=== PATIENT | male | born 1990 | race Caucasian/White ===

== ENCOUNTER 2018-03-08 13:16 | Emergency (ER) | payer MEDICARE, MEDICAID, SELFPAY ==
[2018-03-08 13:27] VITALS: BP 128/78; PULSE 98; RESP 18; TEMP 37.1; O2SAT 99
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
[2018-03-08] MEDS: Ibuprofen 600 MG TAB PO (14:15)
== END 2018-03-08 14:55 | disposition home or self-care (01) ==
PROVIDERS: Emergency Provider Emergency Medicine; PCP Specialist/Technologist Athletic Trainer
DX: S20.222A Contusion of left back wall of thorax, initial encounter (principal); W50.1XXA Accidental kick by another person, initial encounter
CPT/HCPCS: 99284; 99282

== ENCOUNTER 2018-12-11 10:26 | Emergency (ER) | payer MEDICARE, MEDICAID, SELFPAY ==
[2018-12-11 10:35] VITALS: BP 136/83; PULSE 86; RESP 18; TEMP 36.8; O2SAT 97
[2018-12-11 11:09] LABS: Bilirubin Negative (Negative); Blood Negative (Negative); Clarity Clear (Clear); Glucose Negative (Negative); Ketones Negative (Negative); Leukocyte Esterase Small (Negative); Nitrite Negative (Negative); Specific Gravity 1.025 (1.005-1.025); Urobilinogen 0.2 EU/dL (Up TO 0.2)
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
[2018-12-11 11:31] LABS: *AMPHETAMINES SCREEN URINE Negative (Negative); *BARBITURATES SCREEN URINE Negative (Negative); *BENZODIAZEPINES SCREEN URINE Negative (Negative); Cannabinoids THC POSITIVE (Negative); Cocaine Screen,Urine Negative (Negative); METHADONE URINE SCREEN Negative (Negative); OPIATES URINE SCREEN Negative (Negative)
[2018-12-11 11:32] LABS: Tricyclic Antidepressants Negative (Negative)
[2018-12-11 11:37] LABS: Epithelial Cells Few HPF (Negative); RBC 0-2 (0-2); WBC 20-50 HPF (0-5)
[2018-12-11 11:38] LABS: Bacteria Few HPF (Negative); C & S Indicated? Yes; Casts Negative LPF (Negative); Crystals Negative HPF (Negative); Mucus Heavy (Negative)
[2018-12-11 11:50] LABS: Abs Immature Grans 0.01 k/cumm (0.0-0.09); Absolute Basophil Count 0.02 k/cumm (0.0-0.2); Absolute Eosinophil Count 0.02 k/cumm (0.0-0.7); Absolute Lymphocyte Count 1.57 k/cumm (1.2-3.4); Absolute Monocyte Count 0.74 k/cumm (0.11-0.7); Absolute Neutrophil Count 5.89 k/cumm (1.2-6.7); Basophils % 0.2; Eosinophils % 0.2; HGB 15.5 g/dL (13.5-17.5); Immature Grans % 0.1; Mean Corp. HGB Concentration 35.2 g/dL (32.0-36.0); Mean Corpuscular Hemoglobin 31.8 pg (27.0-33.0); Mean Corpuscular Volume 90.3 fL (80-95); Mean Platelet Volume 9.8 fL (8.0-11.0); Neutrophils % 71.5; Platelet Count 245 x1000/uL (130-400); RBC 4.87 m/cumm (4.50-6.00); RBC Distribution Width 12.9 % (11.8-14.1); White Blood Cell Count 8.25 k/cumm (4.4-10.8)
[2018-12-11 12:08] LABS: ALT 15 U/L (16-63); AST 13 U/L (15-37); Albumin 4.3 g/dL (3.4-5.0); Alkaline Phosphatase 86 U/L (46-116); Anion Gap 10.4 mmol/L (3-11); BUN 12 mg/dL (7-18); Bilirubin, Total 0.6 mg/dL (0.2-1.0); CO2 26.6 mmol/L (21.0-32.0); CREATININE 1.01 mg/dL (0.70-1.30); Calcium 9.3 mg/dL (8.5-10.1); Chloride 101 mmol/L (98-107); Glucose 108 mg/dL (70-100); Potassium 3.9 mmol/L (3.5-5.1); Sodium 138 mmol/L (136-145); Total Protein 7.8 g/dL (6.4-8.2)
--- NOTE | 2018-12-11 12:16 | PDOC.MHCN_ITS ---
Mental Health Crisis Note Presenting Issue How did you arrive at the ED and why did you come: Clt came in with his SO becacuse clt may be having a psychotic break. 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 The clt has been reported to be decompensating and stopped his anti-psychotic medication. Disposition BEHAVIOR: Clt appears calm at the present moment. EYE CONTACT: Eye contact was intermittent. MOOD: Pleasant for the moment. AFFECT: Somewhat flat APPETITE: Good SLEEP(trouble falling/staying asleep: some issues with sleep. Plan To get the clt reconnected to necessary mental health services and restart the clt's anti-psychotic medication.
[2018-12-11 12:40] VITALS: BP 142/83; PULSE 92; RESP 16; O2SAT 97
[2018-12-11 15:23] VITALS: BP 133/87; PULSE 96; TEMP 37.1; O2SAT 98
--- NOTE | 2018-12-18 09:28 | CMPROGNOTE_ITS ---
Care Management Progress Note Dr. Martell requested support with discharge planning for Mirza. Dr. Martell and this race and sports book writer called multiple pharmacies to inquire to invega in stock. Dr. Martell was able to coordinate through [facility] in [facility] for tomorrow, 12/12/18. Mirza's grandmother will pick up operator the medication at [facility] and bring Mirza to the Emergency Room for the injection. Mirza will require another dose in a week, and then will resume his monthly dosing at [facility] as he was doing previously. Gale reported he would work to have Mirza re-attached to [facility]. He reported the intake paperwork has already been completed and Mirza should be re- attached as soon as possible.
--- NOTE | 2018-12-18 09:28 | PDOC.ERCMPRO ---
Care Management Progress Note Dr. Martell requested support with discharge planning for Mirza. Dr. Martell and this justowriter operator called multiple pharmacies to inquire to invega in stock. Dr. Martell was able to coordinate through [facility] in [facility] for tomorrow, 12/12/18. Mirza's grandmother will metal pickling equipment operator the medication at [facility] and bring Mirza to the Emergency Room for the injection. Mirza will require another dose in a week, and then will resume his monthly dosing at [facility] as he was doing previously. Gale reported he would work to have Mirza re-attached to [facility]. He reported the intake paperwork has already been completed and Mirza should be re-attached as soon as possible.
== END 2018-12-11 16:45 | disposition home or self-care (01) ==
PROVIDERS: Emergency Provider Physician Assistant; PCP Specialist/Technologist Athletic Trainer
DX: F20.9 Schizophrenia, unspecified (principal)
CPT/HCPCS: 36415; 80053; 80307; 99283; 81003; 81015; 85025; 87086

== ENCOUNTER 2018-12-12 09:35 | Emergency (ER) | payer MEDICARE, MEDICAID, SELFPAY ==
[2018-12-12 09:38] VITALS: BP 125/88; PULSE 104; RESP 20; TEMP 36.9; O2SAT 96
--- NOTE | 2018-12-12 09:46 | W.ED.GENAD ---
Discharge Plan Disposition Patient Disposition: HOME Condition: Stable Discharge Details Chief Complaint: Recheck Clinical Impression: Medication administered Primary Care Provider: Blake Huggins ED Provider: Ivana Martell Home Meds and New Rx's Prescriptions: Continued Invega Sustenna 234 MG/1.5 ML syringe 234 mg IM DIRECTED RF: 0 ibuprofen 600 MG tablet 600 mg PO Q8H PRNQty: 15 RF: 0 Invega Sustenna 156 mg/mL syringe 156 mg IM ONCE Qty: 1 RF: 0 hydroxyzine HCl 10 MG tablet 50 mg PO TID RF: 0 paliperidone [Invega] 3 MG tablet extended release 24hr 3 mg PO DAILY RF: 0 atomoxetine [Strattera] 100 mg Capsule 100 mg PO DAILY RF: 0 Discharge Instructions Instructions: Paliperidone (Injection) Additional Instructions: Alternate Tylenol and Motrin as needed and directed for pain. You can apply ice to the affected area for 20 minutes at a time as needed. Follow-up with [facility] services and care management to ensure that you have a follow-up appointment in 6 to 7 days for the second injection of 156mg Invega and then follow-up with [facility] services for your once monthly injections of 234 mg Invega. Return to the emergency department if you develop any worsening or new concerning symptoms such as fever, pain, numbness or weakness. Discharge Data Discharge Date/Time-TO BE ENTERED AT DEPARTURE: 12/12/18 09:55 Discharge Physician: Ivana Martell Medical Decision Making 28-year-old male with a history of schizophrenia presents today for administration of his Invega injection. Patient was seen here yesterday for request of restarting his Invega injection but this was not available. Please refer to yesterday's note for further information. Fianc? states that patient did much better last night and no acute events. Patient presents with his fianc?e and grandmother. Grandmother picked up the Invega injection from the pharmacy. The injection was administered by the nurse which patient tolerated well without any complications. Plan is for patient to follow-up with [facility] human services for further injections of this medication. It was discussed with care management yesterday, that if patient is unable to obtain the second injection at 7 days with [facility], to return to the emergency department for evaluation at that time and likely administration of his needed dose. Medical Records Medical records reviewed: Yes I reviewed the patient's medical records. HPI General Mode of arrival: ambulatory. Date/Time Provider Initiated Documentation: 12/12/18 09:45. Limitations to Documentation: no limitations. Information obtained by: patient and family. HPI Narrative: Patient is a 28-year-old male with a history of schizophrenia who presents with his Invega injection dose for administration here in the ED today. Patient was seen here yesterday with request of restarting his Invega injection which he had previously been receiving at [facility] but had not received it the past few months. Please refer to my note from yesterday for further information. After discussion with care management and mental health, [facility] for mental health dropped off the prescription for Invega to the pharmacy yesterday with plans for patient's grandmother to merchandise pickup/receiving associate the dose this morning and then return to the ER today for administration of the injection. Fianc? states that patient did well overnight with no acute events. Related Data Home Medications Medication Instructions Recorded Confirmed Invega Sustenna 234 mg IM DIRECTED 10/14/14 03/08/18 hydroxyzine HCl 50 mg PO TID 02/22/16 03/08/18 paliperidone [Invega] 3 mg PO DAILY 02/22/16 03/08/18 ibuprofen 600 mg PO Q8H PRN #15 tablet 09/16/16 03/08/18 atomoxetine [Strattera] 100 mg PO DAILY 03/08/18 03/08/18 Invega Sustenna 156 mg IM ONCE #1 ml 12/11/18 Previous Rx's Medication Instructions Recorded ibuprofen 600 mg PO Q8H PRN #15 tablet 09/16/16 Invega Sustenna 156 mg IM ONCE #1 ml 12/11/18 Allergies Allergy/AdvReac Type Severity Reaction Status Date / Time No Known Allergies Allergy Unverified 03/08/18 13:30 General Stated Complaint: Recheck GABRIEL: 5 Review of Systems Review of Systems ROS Unobtainable: All systems reviewed & are unremarkable except as noted in HPI and below PFSH Social History Smoking/Tobacco Use Status: Current every day Alcohol Intake: never Drug use: Occasionally Substance use type: marijuana Do you feel safe in your relationship?: No Exam Const General: cooperative, healthy appearing and no acute distress HENMT Head: normal to inspection Mouth: oral mucosae normal Eyes General: appearance normal, both eyes and all related structures Neck Neck: normal visual inspection Resp Effort & Inspection: normal respiratory effort and able to speak in complete sentences Auscultation: clear to auscultation bilaterally Cardio Rate: regular rate Rhythm: regular rhythm Skin General skin exam: no rashes or lesions noted Neuro General: alert, awake and oriented x3 Motor: muscle tone normal throughout Extrem General: normal to inspection and full ROM Psych Appearance: grossly normal Mental Status: mental status grossly normal Speech and Movement: speech and movement normal Affect: normal affect Attitude: cooperative Course Vital Signs Vital signs: Vital Signs Temperature 98.4 F 12/12/18 09:38 Pulse 104 H 12/12/18 09:38 Respiratory Rate 20 12/12/18 09:38 Blood Pressure 125/88 12/12/18 09:38 Pulse Oximetry 96 12/12/18 09:38 Temperature 98.4 F 12/12/18 09:38 Temperature Source Skin 12/12/18 09:38 Pulse 104 H 12/12/18 09:38 Respiratory Rate 20 12/12/18 09:38 Respiratory Effort Non-Labored 12/12/18 09:41 Blood Pressure 125/88 12/12/18 09:38 Blood Pressure Position Sitting 12/12/18 09:38 Pulse Oximetry 96 12/12/18 09:38 Oxygen Delivery Method Room Air 12/12/18 09:38 Oxygen Flow Rate 0 12/12/18 09:38
--- NOTE | 2018-12-22 10:40 | CMPROGNOTE_ITS ---
- If Service Date Differs Date of service: 12/18/18 Time of Service: 13:00 Care Management Progress Note GIAN spoke with [facility], [facility] and reviewed plan for Mirza (Keyshawn) to receive the other part of his Invega Sustenna injection 156 mg. GIAN contacted [facility] and spoke with [facility]ER ROLLER RN who reports he is no longer receiving services through them. [facility] is attempting to restart services through [facility] and reestablishing [facility] for Keyshawn. GIAN contacted primary care office and Natty Borges to arrange for a one time order for the split dose. Keyshawn does have the 234 mg at the pharmacy for his next full dose. His primary care is willing to do the monthly injections and have scheduled an appointment for Keyshawn on 01/08/19. GIAN coordinated todays injection with primary care and future injections will be administered by them. GIAN reviewed the plan with LAURIE Seals at [facility] to confirm the plan and that she will follow up with patient and gram. GIAN spoke with the Grandmother and she will ensure that the patients follows up with primary care.
== END 2018-12-12 09:55 | disposition home or self-care (01) ==
PROVIDERS: Emergency Provider Physician Assistant; PCP Specialist/Technologist Athletic Trainer
DX: F20.9 Schizophrenia, unspecified (principal)
CPT/HCPCS: 96372; 99284

== ENCOUNTER 2019-01-01 07:49 | Emergency (ER) | payer MEDICARE, MEDICAID, SELFPAY ==
[2019-01-01 07:54] VITALS: BP 121/74; PULSE 94; RESP 18; TEMP 36.3; O2SAT 98
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
--- NOTE | 2019-01-01 09:00 | NUR.NOTE ---
Nursing Note: breakfast provided
[2019-01-01 09:37] LABS: Bilirubin Negative (Negative); Blood Negative (Negative); Clarity Clear (Clear); Glucose Negative (Negative); Ketones Negative (Negative); Leukocyte Esterase Negative (Negative); Nitrite Negative (Negative); Specific Gravity 1.015 (1.005-1.025); Urobilinogen 0.2 EU/dL (Up TO 0.2)
[2019-01-01 09:48] LABS: *AMPHETAMINES SCREEN URINE Negative (Negative); *BARBITURATES SCREEN URINE Negative (Negative); *BENZODIAZEPINES SCREEN URINE Negative (Negative); Cannabinoids THC POSITIVE (Negative); Cocaine Screen,Urine Negative (Negative); METHADONE URINE SCREEN Negative (Negative); OPIATES URINE SCREEN Negative (Negative)
[2019-01-01 09:50] LABS: Tricyclic Antidepressants Negative (Negative)
--- NOTE | 2019-01-01 10:05 | NUR.NOTE ---
patient medicated per provider order for anxiety , patient agreed to have to labs drawn Nursing Note:
--- NOTE | 2019-01-01 10:07 | NUR.NOTE ---
patients previous note was entered by Jose Shannon RN not Adamaris Gee RN Nursing Note:
[2019-01-01] MEDS: LORazepam 1 MG TAB PO (10:08)
[2019-01-01 10:11] LABS: Abs Immature Grans 0.02 k/cumm (0.0-0.09); Absolute Basophil Count 0.02 k/cumm (0.0-0.2); Absolute Eosinophil Count 0.01 k/cumm (0.0-0.7); Absolute Lymphocyte Count 1.63 k/cumm (1.2-3.4); Absolute Monocyte Count 0.32 k/cumm (0.11-0.7); Absolute Neutrophil Count 6.71 k/cumm (1.2-6.7); Basophils % 0.2; Eosinophils % 0.1; HCT 39.7 % (40.0-50.0); HGB 13.8 g/dL (13.5-17.5); Immature Grans % 0.2; Lymphocytes % 18.7; Mean Corp. HGB Concentration 34.8 g/dL (32.0-36.0); Mean Corpuscular Hemoglobin 31.8 pg (27.0-33.0); Mean Corpuscular Volume 91.5 fL (80-95); Mean Platelet Volume 9.3 fL (8.0-11.0); Monocytes % 3.7; Neutrophils % 77.1; Platelet Count 293 x1000/uL (130-400); RBC 4.34 m/cumm (4.50-6.00); RBC Distribution Width 12.6 % (11.8-14.1); White Blood Cell Count 8.71 k/cumm (4.4-10.8)
[2019-01-01 10:32] LABS: ALT 21 U/L (16-63); AST 9 U/L (15-37); Alkaline Phosphatase 75 U/L (46-116); Anion Gap 7.6 mmol/L (3-11); BUN 9 mg/dL (7-18); Bilirubin, Total 0.3 mg/dL (0.2-1.0); CO2 30.4 mmol/L (21.0-32.0); CREATININE 1.14 mg/dL (0.70-1.30); Calcium 9.5 mg/dL (8.5-10.1); Chloride 101 mmol/L (98-107); Glucose 133 mg/dL (70-100); Potassium 3.7 mmol/L (3.5-5.1); Sodium 139 mmol/L (136-145); TSH 1.56 uIU/mL (0.36-3.74); Total Protein 7.2 g/dL (6.4-8.2)
[2019-01-01 10:34] LABS: Salicylate 7.4 mg/dL (2.8-20.0)
[2019-01-01 10:35] LABS: Acetaminophen < 2 ug/mL (10-30); ETHANOL BLOOD < 3.0 mg/dL (<3)
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
--- NOTE | 2019-01-01 11:12 | NUR.NOTE ---
Nursing Note Pt's grandmother has called to request to be notified of where and when pt leaves [facility]. Her best phone number for contact is: [phone]. Primary nurse is aware.
[2019-01-01] MEDS: diphenhydrAMINE 25 MG CAP PO (11:17)
[2019-01-01] MEDS: LORazepam 1 MG TAB 2 MG PO (11:17)
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
--- NOTE | 2019-01-01 11:39 | NUR.NOTE ---
pt provided with lunch tray Nursing Note:
--- NOTE | 2019-01-01 12:18 | NUR.NOTE ---
late entry note: 1117: patient agreed to take medication for increased anxiety and agitation, lunch tray offered, report given to primary RN Nursing Note:
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
[2019-01-01] MEDS: Ibuprofen 600 MG TAB PO (17:18)
[2019-01-01] MEDS: hydrOXYzine HCL 25 MG TAB (17:18)
--- NOTE | 2019-01-01 18:35 | NUR.NOTE ---
18:35 Spoke with Cheryl in admissions at [facility] for a second time. They received the addendum from mental health and is in review.
--- NOTE | 2019-01-01 20:21 | NUR.NOTE ---
1900-shift report received from POPEYE Ferguson. pt is resting on bed with eyes closed, sitter bedside. per report, no b bed available for transport so pt will likely stay in ED for atleast tonight. sitter states pt ate small amount for supper. no distress noted. Nursing Note:
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
[2019-01-01 22:51] VITALS: BP 120/82; PULSE 74; RESP 18; TEMP 36.7; O2SAT 99
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
== END 2019-01-01 22:55 | disposition home or self-care (01) ==
PROVIDERS: Physician Assistant; Emergency Provider Physician Assistant; PCP Specialist/Technologist Athletic Trainer
DX: F20.9 Schizophrenia, unspecified (principal); F41.9 Anxiety disorder, unspecified
CPT/HCPCS: 36415; 80053; 80307; 96372; 99222; 99283; 99285; 80320; 80329; 81003; 84443; 85025; 99284

== ENCOUNTER 2019-01-06 13:14 | Emergency (ER) | payer MEDICARE, MEDICAID, SELFPAY ==
[2019-01-06 13:17] VITALS: BP 129/79; PULSE 84; RESP 20; TEMP 36.8; O2SAT 99
--- NOTE | 2019-01-06 13:54 | ED.GENADUL_ITS ---
Discharge Plan Disposition Patient Disposition: HOME Condition: Stable Discharge Details Chief Complaint: PsychEval Clinical Impression: Anxiety, Schizophrenia Primary Care Provider: Blake Huggins ED Provider: Kiko Pantoja Home Meds and New Rx's Prescriptions: New lorazepam [Ativan] 1 mg tablet 1 mg PO TID PRN (Reason: anxiety) Qty: 5 RF: 0 Continued Invega Sustenna 234 MG/1.5 ML syringe 234 mg IM DIRECTED RF: 0 ibuprofen 600 MG tablet 600 mg PO Q8H PRNQty: 15 RF: 0 Invega Sustenna 156 mg/mL syringe 156 mg IM ONCE Qty: 1 RF: 0 hydroxyzine HCl 10 MG tablet 50 mg PO TID RF: 0 paliperidone [Invega] 3 MG tablet extended release 24hr 3 mg PO DAILY RF: 0 atomoxetine [Strattera] 100 mg Capsule 100 mg PO DAILY RF: 0 Discharge Instructions Instructions: Anxiety (ED) Additional Instructions: Please follow-up with [facility] tomorrow as planned. Return if you feel you are a danger of hurting herself or others. May take the prescribed Ativan, if needed for anxiety or nerves. Continue your regular medications. Medical Decision Making 28-year-old male with history of schizophrenia presents with his girlfriend. He is been having intermittent episodes of feeling anxiety and agitation and states that he feels that he is going to snap. He states he does not want to harm himself or hurt other people. States he was referred by [facility] and questions the need to restart his anxiolytics which in the pa st included lorazepam. Medical screening examination performed. Patient medically stable for further evaluation. He is given Ativan 2 mg p.o. x1. Interviewed by mental health worker, with plan made for outpatient follow-up tomorrow and consideration of ongoing anxiolysis. We have agreed that I will prescribe Mirza a small number of Ativan to be used in the interim between tomorrow's appointment. He will return to the ER for any acute concern. HPI General Mode of arrival: ambulatory . Date/Time Provider Initiated Documentation: 01/06/19 13:20 . Limitations to Documentation: no limitations . Information obtained by: patient . History of Present Illness 28 year old M presents to the emergency department with the chief complaint of I feel as if I might snap and was referred to the ER by [place], described as moderate and similar to prior episodes, and is localized to the head. Patient started experiencing this day(s) and it has been intermittent. No relieving factors improve symptom(s), No exacerbating factors reported . Patient notes other (Denies thoughts of harming himself or others. Specifically no suicidal ideation. No cutting behavior.). Patient did receive the following treatments prior to arrival, none Related Data Home Medications Medication Instructions Recorded Confirmed Invega Sustenna 234 mg IM DIRECTED 10/14/14 01/06/19 hydroxyzine HCl 50 mg PO TID 02/22/16 01/06/19 paliperidone [Invega] 3 mg PO DAILY 02/22/16 01/06/19 ibuprofen 600 mg PO Q8H PRN #15 tablet 09/16/16 01/06/19 atomoxetine [Strattera] 100 mg PO DAILY 03/08/18 01/06/19 Invega Sustenna 156 mg IM ONCE #1 ml 12/11/18 01/06/19 lorazepam [Ativan] 1 mg PO TID PRN #5 tab 01/06/19 Previous Rx's Medication Instructions Recorded ibuprofen 600 mg PO Q8H PRN #15 tablet 09/16/16 Invega Sustenna 156 mg IM ONCE #1 ml 12/11/18 lorazepam [Ativan] 1 mg PO TID PRN #5 tab 01/06/19 Allergies Allergy/AdvReac Type Severity Reaction Status Date / Time No Known Allergies Allergy Unverified 01/06/19 13:23 General Stated Complaint: PsychEval GABRIEL: 2 Review of Systems Narrative: Taking his medications. Hears noncommand verbal hallucinations. Denies other injury. No suicidal ideation or homicidal ideation. 6 systems reviewed and otherwise negative. [facility] Medical History Schizophrenia (Chronic) Social History Smoking/Tobacco Use Status: Current every day Alcohol Intake: never Drug use: Occasionally Substance use type: marijuana Do you feel safe in your relationship?: No Exam Narrative Exam Narrative: GEN: awake, alert, oriented 3. Pleasant, well groomed, interactive. HEAD: Normocephalic, atraumatic ENT: Mucous membranes moist, oropharynx unremarkable, External ear exam unremarkable EYES: PERRL, EOMI NECK: Full ROM, no TAVO, no menigismus CHEST/RESP: Nontender, clear to auscultation bilateral, no wheeze/rhonchi/rales CARDIOVASCULAR: RRR, no murmur, rub papo. 2+ Rad pulse bilateral ABDOMEN: Soft, nontender, no mass. +Bowel sounds EXT: Full ROM, no edema, no rash Neuro: Grossly normal neurologic exam, conversant, interactive. Psych: Speech fluent, thoughts congruent, affect flat Course Vital Signs Vital signs: Vital Signs Temperature 36.8 C 01/06/19 13:17 Pulse 84 01/06/19 13:17 Respiratory Rate 20 01/06/19 13:17 Blood Pressure 129/79 01/06/19 13:17 Pulse Oximetry 99 01/06/19 13:17 Temperature 36.8 C 01/06/19 13:17 Temperature Source Temporal Artery Scan 01/06/19 13:17 Pulse 84 01/06/19 13:17 Respiratory Rate 20 01/06/19 13:17 Blood Pressure 129/79 01/06/19 13:17 Pulse Oximetry 99 01/06/19 13:17 Oxygen Delivery Method Room Air 01/06/19 13:17 Oxygen Flow Rate 0 01/06/19 13:17 Pain Level 0 01/06/19 13:17
[2019-01-06 14:01] LABS: *AMPHETAMINES SCREEN URINE Negative (Negative); *BARBITURATES SCREEN URINE Negative (Negative); *BENZODIAZEPINES SCREEN URINE Negative (Negative); Cannabinoids THC POSITIVE (Negative); Cocaine Screen,Urine Negative (Negative); METHADONE URINE SCREEN Negative (Negative); OPIATES URINE SCREEN Negative (Negative)
[2019-01-06 14:11] LABS: Tricyclic Antidepressants Negative (Negative)
[2019-01-06] MEDS: LORazepam 1 MG TAB 2 MG PO (14:21)
--- NOTE | 2019-01-06 14:56 | PDOC.MHCN ---
Mental Health Crisis Note Presenting Issue How did you arrive at the ED and why did you come: Clt came in because he having issues with his psychosis. Precipitating Factors Clt has a hx of psychotic symptoms and is dx'ed on the schizophrenic spectrum. The clt has a meeting with his new prescriber tomorrow. Clt will be getting his nighttime dose of Activan and tomorrow he will attend his meeting at 230p to see his prescriber. Clt denies any SI or HI. The voices according to the clt, aren't giving him any harmful commands. Disposition BEHAVIOR: The clt's behavior is largely cooperative but has issues with going off on tangents that have nothing to do with the conversation. EYE CONTACT: The clt's eye contact was intermittent. MOOD: The clt's mood was pleasant. AFFECT: He had a pleasant affect. APPETITE: Good SLEEP(trouble falling/staying asleep: Issues with sleep disturbance. Plan The clt will go home and take medications as prescribed. He will focus on getting a good sleep and attend his meeting with his new prescriber tomorrow at the [facility] office at 230p.
== END 2019-01-06 22:10 | disposition home or self-care (01) ==
PROVIDERS: Emergency Provider Emergency Medicine; PCP Specialist/Technologist Athletic Trainer
DX: F41.9 Anxiety disorder, unspecified (principal); F20.9 Schizophrenia, unspecified
CPT/HCPCS: 80307; 99284

== ENCOUNTER 2020-02-04 19:25 | Emergency (ER) | payer MEDICARE, MEDICAID, SELFPAY ==
[2020-02-04 19:35] VITALS: BP 123/80; PULSE 106; RESP 14; TEMP 36.7; O2SAT 97
--- NOTE | 2020-02-04 19:37 | ED.GENADUL_ITS ---
Discharge Plan Disposition Patient Disposition: HOME Condition: Stable Discharge Details Clinical Impression: Back strain Primary Care Provider: Blake Huggins ED Provider: Belgica Lanza Home Meds and New Rx's Prescriptions: No Action Invega Sustenna 234 MG/1.5 ML syringe 234 mg IM DIRECTED RF: 0 ibuprofen 600 MG tablet 600 mg PO Q8H PRNQty: 15 RF: 0 hydroxyzine HCl 10 MG tablet 50 mg PO TID RF: 0 paliperidone [Invega] 3 MG tablet extended release 24hr 3 mg PO DAILY RF: 0 atomoxetine [Strattera] 100 mg Capsule 100 mg PO DAILY RF: 0 clonidine HCl 0.1 mg tablet 1 mg PO BID RF: 0 gabapentin 600 mg tablet 600 mg PO QID RF: 0 bupropion HCl 100 mg tablet sustained-release 12 hr 100 mg PO QAM RF: 0 Discharge Instructions Instructions: Thoracic Back Strain (ED) Additional Instructions: take ibuprofen 600 mg 4 times daily with food if needed and or acetaminophen 650 mg 4 times daily if needed can use heat or ice for comfort no lifting or twisting or bending at the waist until symptoms resolved. Referrals: Blake Huggins [Primary Care Provider] - Medical Decision Making non traumatic back pain while lifting groceries. will give toradol 30 mg IM, acetaminophen 1000 mg po and lidocaine patch with improvement in pain. no xray indicated at this time. will discharge with conservative care HPI General Date/Time Provider Initiated Documentation: 02/04/20 19:26 . Information obtained by: patient . HPI Narrative: This is a 29-year-old male patient who was in his usual state of health until tonight when he went to go bring in groceries walking up the stairs and felt pain in his right mid back. He denies any trauma fall or similar history. no fever chills cough or shortness of breath. He did not take any pain medication prior to arrival Related Data Home Medications Medication Instructions Recorded Confirmed Invega Sustenna 234 mg IM DIRECTED 10/14/14 02/04/20 hydroxyzine HCl 50 mg PO TID 02/22/16 02/04/20 paliperidone [Invega] 3 mg PO DAILY 02/22/16 02/04/20 ibuprofen 600 mg PO Q8H PRN #15 tablet 09/16/16 02/04/20 atomoxetine [Strattera] 100 mg PO DAILY 03/08/18 02/04/20 bupropion HCl 100 mg PO QAM 02/04/20 02/04/20 clonidine HCl 1 mg PO BID 02/04/20 02/04/20 gabapentin 600 mg PO QID 02/04/20 02/04/20 Previous Rx's Medication Instructions Recorded ibuprofen 600 mg PO Q8H PRN #15 tablet 09/16/16 Allergies Allergy/AdvReac Type Severity Reaction Status Date / Time No Known Allergies Allergy Unverified 01/06/19 13:23 General GABRIEL: 2 Review of Systems Constitutional Constitutional: Denies fever(s) and Denies frequent falls Respiratory Respiratory: Denies cough Gastrointestinal Gastrointestinal: Denies abdominal pain and Denies nausea Musculoskeletal Musculoskeletal: Denies abnormal gait, Reports back pain and Denies numbness Integumentary/Breasts Skin/Breast: Denies lesions and Denies rash Neurologic Neurologic: Denies abnormal gait, Denies frequent falls and Denies numbness PFSH Medical History (Updated 02/04/20 @ 20:00 by Belgica Lanza NP) ADD (attention deficit disorder) Anxiety Schizophrenia Surgical History Fracture of lower leg Social History Smoking/Tobacco Use Status: Current every day Tobacco Type: cigarettes Smoking risk assessment performed?: Yes Alcohol Intake: never Drug use: Occasionally Substance use type: marijuana Do you feel safe at home: Yes Do you feel safe in your relationship?: Yes Exam Const General: cooperative, comfortable and no acute distress Nutritional Appearance: thin Orientation: alert, awake and oriented x3 [facility] Head: normal to inspection, normocephalic and atraumatic Resp Effort & Inspection: normal respiratory effort Auscultation: clear to auscultation bilaterally Cardio Rate: regular rate Rhythm: regular rhythm Back/Spine/Pelvis Back: no CVA tenderness, No erythema, No ecchymosis and back tenderness Thoracic/Lumbar Spine: No mass Skin Lesions: lesions noted Rashes: rash noted Neuro General: patient alert, patient awake, patient oriented x3 and no focal motor deficits Extrem General: normal to inspection, full ROM and no edema
[2020-02-04] MEDS: Acetaminophen 500 MG TAB 1000 MG PO (19:58)
[2020-02-04] MEDS: Ketorolac 30 MG/ML VIAL IVP (19:59)
[2020-02-04] MEDS: Lidocaine 5% Patch 1 PATCH TP (19:59)
== END 2020-02-04 20:20 | disposition home or self-care (01) ==
PROVIDERS: Emergency Provider Nurse Practitioner Acute Care; PCP Specialist/Technologist Athletic Trainer
DX: S29.012A Strain of muscle and tendon of back wall of thorax, initial encounter (principal); X58.XXXA Exposure to other specified factors, initial encounter
CPT/HCPCS: 96374; 99284; 99283; J1885

== ENCOUNTER 2021-09-12 18:57 | Outpatient (REF) | payer MEDICARE, MEDICAID, SELFPAY ==
[2021-09-12 21:34] LABS: Anion Gap 9.2 mmol/L (3-11); BUN 10 mg/dL (7-18); CO2 27.8 mmol/L (21.0-32.0); CREATININE 0.9 mg/dL (0.70-1.30); Calcium 9.4 mg/dL (8.5-10.1); Chloride 104 mmol/L (98-107); Glucose 109 mg/dL (74-106); Potassium 3.6 mmol/L (3.5-5.1); Sodium 141 mmol/L (136-145)
== END 2021-09-12 18:58 | disposition home or self-care (01) ==
LOC: LBN 18:57
PROVIDERS: PCP Specialist/Technologist Athletic Trainer; Visit Provider Physician Assistant Medical
DX: R10.31 Right lower quadrant pain (principal); R07.81 Pleurodynia
CPT/HCPCS: 80048

== ENCOUNTER → 2021-09-12 19:08 | Outpatient (CLI) | payer MEDICARE, MEDICAID, SELFPAY ==
--- NOTE | 2021-09-12 | DI.RAD_ITS ---
Exam(s) XR RIBS RT W PA LAT CHEST EXAM: XR RIBS RT W PA LAT CHEST CLINICAL HISTORY: Rib pain, right side TECHNIQUE: 2D digital imaging was performed.Six images were obtained. COMPARISON: No exams were available for comparison FINDINGS: MEDIASTINUM: Normal. HEART: Normal. PULMONARY VASCULATURE: Normal. LUNGS: Clear. PLEURAL SPACE: No pleural effusion or pneumothorax. BONE:Normal. RIGHT RIBS: Normal. OTHER FINDINGS:Normal. IMPRESSION: 1. No acute pulmonary findings. 2. Unremarkable right ribs. DATA REPOSITORY: RADIATION DOSE DELIVERED:
--- NOTE | 2021-09-12 19:40 | DI.VRAD_ITS ---
PROCEDURE INFORMATION: Exam: XR Right Ribs Exam date and time: 09/12/2021 7:12 PM Age: 31 years old Clinical indication: Other: Rib pain right; Other: Right rib pain TECHNIQUE: Imaging protocol: Radiologic exam of the Right ribs. Views: 2 views. COMPARISON: No relevant prior studies available. FINDINGS: Bones/joints: Normal. Soft tissues: Normal. IMPRESSION: No acute findings. PROCEDURE INFORMATION: Exam: XR Chest Exam date and time: 09/12/2021 7:12 PM Age: 31 years old Clinical indication: Other: Rib pain right; Other: Right rib pain TECHNIQUE: Imaging protocol: Radiologic exam of the chest. Views: 2 views. COMPARISON: No relevant prior studies available. FINDINGS: Lungs: Unremarkable. No consolidation. Pleural spaces: Unremarkable. No pleural effusion. No pneumothorax. Heart/Mediastinum: Unremarkable. No cardiomegaly. Bones/joints: Unremarkable. IMPRESSION: No acute findings. Dictated and Authenticated by: Qing Dodson MD. Ordering:SANCHEZ Ward MD
== END ==
PROVIDERS: PCP Specialist/Technologist Athletic Trainer; Visit Provider Physician Assistant Medical
DX: R07.81 Pleurodynia (principal)
CPT/HCPCS: 71046; 71100

== ENCOUNTER 2022-08-17 01:52 | Emergency (ER) | payer OTHER, MEDICAID, SELFPAY ==
[2022-08-17 01:56] VITALS: BP 128/73; PULSE 97; RESP 19; TEMP 36.5; O2SAT 99
--- NOTE | 2022-08-17 02:20 | ED.GENADUL_ITS ---
Discharge Plan Disposition Patient Disposition: Home Discharge Details Clinical Impression: Contusion of foot Primary Care Provider: Blake Huggins ED Provider: Ramon Joy Home Meds and New Rx's Prescriptions: Continued Invega Sustenna 234 MG/1.5 ML syringe 234 mg IM DIRECTED Patient Comments: takes once a month ibuprofen 600 MG tablet 600 mg PO Q8H PRNQty: 15 0RF hydroxyzine HCl 10 MG tablet 50 mg PO TID paliperidone [Invega] 3 MG tablet extended release 24hr 3 mg PO DAILY atomoxetine [Strattera] 100 mg Capsule 100 mg PO DAILY clonidine HCl 0.1 mg tablet 1 mg PO BID Patient Comments: TK 1 T PO BID gabapentin 600 mg tablet 600 mg PO QID Patient Comments: TK 1 T PO QID . bupropion HCl 100 mg tablet sustained-release 12 hr 100 mg PO QAM Patient Comments: TK 1 T PO QAM Discharge Instructions Instructions: Foot Contusion (ED) Medical Decision Making No indication for x-ray. Unlikely fracture patient's been walking on it for 4 days. Recommended rest and elevation. Offered a cast shoe but the patient declined. Stable for discharge HPI General Date/Time Provider Initiated Documentation: 08/17/22 02:06 . HPI Narrative: Patient presents emergency department with left heel pain after contusion about 4 days ago. Has been walking on it pretty extensively and now has worsening pain. No other injuries. Related Data Home Medications Medication Instructions Recorded Confirmed paliperidone palmitate 234 mg/1.5 234 mg IM DIRECTED 10/14/14 02/04/20 mL intramuscular syringe (Invega Sustenna) hydroxyzine HCl 10 mg tablet 50 mg PO TID 02/22/16 02/04/20 paliperidone 3 mg tablet,extended 3 mg PO DAILY 02/22/16 02/04/20 release 24 hr (Invega) ibuprofen 600 mg tablet 600 mg PO Q8H PRN ##15 09/16/16 02/04/20 atomoxetine 100 mg capsule 100 mg PO DAILY 03/08/18 02/04/20 (Strattera) bupropion HCl 100 mg tablet,12 hr 100 mg PO QAM 02/04/20 02/04/20 sustained-release clonidine HCl 0.1 mg tablet 1 mg PO BID 02/04/20 02/04/20 gabapentin 600 mg tablet 600 mg PO QID 02/04/20 02/04/20 Previous Rx's Medication Instructions Recorded ibuprofen 600 mg tablet 600 mg PO Q8H PRN ##15 09/16/16 Allergies Allergy/AdvReac Type Severity Reaction Status Date / Time No Known Allergies Allergy Unverified 01/06/19 13:23 General Stated Complaint: Orthopedic GABRIEL: 4 Review of Systems Constitutional Constitutional: Denies fever(s) Musculoskeletal Musculoskeletal: Denies deformity PFSH All Active Problems (Updated 08/17/22 @ 02:24 by Ramon Joy MD) Schizophrenia (Chronic) Contusion of foot (Acute) Medical History (Updated 08/17/22 @ 02:24 by Ramon Joy MD) ADD (attention deficit disorder) Anxiety Schizophrenia Surgical History Fracture of lower leg Social History Smoking/Tobacco Use Status: Current every day Tobacco Type: cigarettes Smoking risk assessment performed?: Yes Alcohol Intake: never Drug use: Occasionally Substance use type: marijuana Do you feel safe at home: Yes Do you feel safe in your relationship?: Yes Exam Narrative Exam Narrative: GENERAL APPEARANCE NAD, activity normal for age, well developed/ well nourished, no cyanosis, pallor, or diaphoresis. MUSCLES/EXTREMITIES negative Parrish's test no gross deformity minimal swelling of the calcaneus on the left. SKIN Warm, pink and dry. No rashes, dermatoses, petechiae or lesions. NEUROLOGICAL Speech is clear and appropriate. Normal level of consciousness. Gait and coordination are normal. 5/5 strength in all extremities. PSYCH Normal mood and affect. Judgement/competence is appropriate Course Vital Signs Vital signs: Vital Signs Temperature 36.5 C 08/17/22 01:56 Pulse 97 H 08/17/22 01:56 Respiratory Rate 19 08/17/22 01:56 Blood Pressure 128/73 08/17/22 01:56 Pulse Oximetry 99 08/17/22 01:56 Temperature 36.5 C 08/17/22 01:56 Temperature Source Oral 08/17/22 01:56 Pulse 97 H 08/17/22 01:56 Respiratory Rate 19 08/17/22 01:56 Respiratory Effort Normal 08/17/22 01:59 Blood Pressure 128/73 08/17/22 01:56 Blood Pressure Position Sitting 08/17/22 01:56 Pulse Oximetry 99 08/17/22 01:56 Oxygen Delivery Method Room Air 08/17/22 01:56 Oxygen Flow Rate 0 08/17/22 01:56 Pain Level 9 08/17/22 01:56
[2022-08-17] MEDS: Ibuprofen 600 MG TAB PO (02:24)
== END 2022-08-17 02:30 | disposition home or self-care (01) ==
PROVIDERS: Emergency Provider Emergency Medicine; PCP Specialist/Technologist Athletic Trainer
DX: S90.32XA Contusion of left foot, initial encounter (principal); X58.XXXA Exposure to other specified factors, initial encounter
CPT/HCPCS: 99283

== ENCOUNTER 2022-08-21 19:41 | Emergency (ER) | payer OTHER, MEDICAID, SELFPAY ==
[2022-08-21 19:47] VITALS: BP 117/82; PULSE 127; RESP 28; TEMP 36.6; O2SAT 99
--- NOTE | 2022-08-21 20:26 | ED.GENADUL_ITS ---
Discharge Plan Disposition Patient Disposition: Eloped Discharge Details Clinical Impression: Schizophrenia Primary Care Provider: Idania Ricks ED Provider: Otis Da Silva Home Meds and New Rx's Prescriptions: No Action Invega Sustenna 234 MG/1.5 ML syringe 234 mg IM DIRECTED Patient Comments: takes once a month ibuprofen 600 MG tablet 600 mg PO Q8H PRNQty: 15 0RF methylphenidate HCl 20 mg Tablet 20 mg PO 3XD hydroxyzine HCl 10 MG tablet 50 mg PO TID paliperidone [Invega] 3 MG tablet extended release 24hr 6 mg PO DAILY atomoxetine [Strattera] 100 mg Capsule 100 mg PO DAILY clonidine HCl 0.1 mg tablet 1 mg PO BID Patient Comments: TK 1 T PO BID gabapentin 600 mg tablet 800 mg PO QID Patient Comments: TK 1 T PO QID . bupropion HCl 100 mg tablet sustained-release 12 hr 100 mg PO QAM Patient Comments: TK 1 T PO QAM Discharge Data Discharge Date/Time-TO BE ENTERED AT DEPARTURE: 08/21/22 20:35 Medical Decision Making 2019 -- 32yo male with history of schizophrenia, here with concern that he does not feel he is competent to stand trial and is requesting evaluation for competence. Patient does have hallucinations and these seem stable. Patient is mildly anxious. I will consult [facility] crisis screeener to assess patient. I will attempt to contact the patient's civilian jail officer at patient's request. I called Mr. Federico Weber and no answer. 2039 -- Patient apparenetly eloped from the ED. HPI General Mode of arrival: ambulatory . Date/Time Provider Initiated Documentation: 08/21/22 20:03 . Limitations to Documentation: no limitations . Information obtained by: patient . HPI Narrative: 32-year-old male with history of schizophrenia, presents with chief complaint of I am not competent. Patient notes that he does not feel that he is competent to stand trial and is requesting assessment. Per nursing, patient has been determined competent by his psychiatrist. Patient denies suicidal ideation and homicidal ideation. He does note hearing voices which is chronic. Related Data Home Medications Medication Instructions Recorded Confirmed paliperidone palmitate 234 mg/1.5 234 mg IM DIRECTED 10/14/14 08/22/22 mL intramuscular syringe (Invega Sustenna) hydroxyzine HCl 10 mg tablet 50 mg PO TID 02/22/16 02/04/20 paliperidone 3 mg tablet,extended 6 mg PO DAILY 02/22/16 08/22/22 release 24 hr (Invega) ibuprofen 600 mg tablet 600 mg PO Q8H PRN ##15 09/16/16 08/22/22 atomoxetine 100 mg capsule 100 mg PO DAILY 03/08/18 02/04/20 (Strattera) bupropion HCl 100 mg tablet,12 hr 100 mg PO QAM 02/04/20 08/22/22 sustained-release clonidine HCl 0.1 mg tablet 1 mg PO BID 02/04/20 08/21/22 gabapentin 600 mg tablet 800 mg PO QID 02/04/20 08/22/22 methylphenidate HCl 20 mg tablet 20 mg PO 3XD 08/22/22 08/22/22 Previous Rx's Medication Instructions Recorded ibuprofen 600 mg tablet 600 mg PO Q8H PRN ##15 09/16/16 Allergies Allergy/AdvReac Type Severity Reaction Status Date / Time No Known Allergies Allergy Unverified 01/06/19 13:23 General Stated Complaint: PsychEval GABRIEL: 3 Review of Systems All systems reviewed & are unremarkable except as noted in HPI and below Constitutional Constitutional: Denies fever(s) Cardiovascular Cardiovascular: Denies chest pain PFSH All Active Problems (Updated 08/22/22 @ 22:10 by Otis Da Silva MD) Schizophrenia (Chronic) Contusion of foot (Acute) Medical History ADD (attention deficit disorder) Anxiety Schizophrenia Surgical History Fracture of lower leg Social History Smoking/Tobacco Use Status: Current every day Tobacco Type: cigarettes Smoking risk assessment performed?: Yes Alcohol Intake: never Drug use: Current Sobriety Substance use type: marijuana Do you feel safe at home: Yes Do you feel safe in your relationship?: Yes Exam Const General: cooperative and no acute distress HENMT Mouth: moist mucous membranes Eyes Conjunctivae: normal conjunctivae Sclera: normal sclerae Neck Neck: trachea midline and supple Resp Auscultation: clear to auscultation bilaterally, no rales, no rhonchi and no wheezes Cardio Rhythm: regular rhythm GI Palpation: soft, not firm, no guarding, no masses, not rigid and nontender Skin General skin exam: no rashes or lesions noted Neuro General: patient alert, patient awake and tone normal Extrem General: no edema Psych Appearance: grossly normal Mental Status: mental status grossly normal Speech and Movement: speech and movement normal Mood: anxious mood Affect: animated Attitude: cooperative Thought Process: circumstantial Thought Content: no homicidality and suicidality Insight: insight good Judgment: judgment good Course Vital Signs Vital signs: Vital Signs Temperature 36.6 C 08/21/22 19:47 Pulse 127 H 08/21/22 19:47 Respiratory Rate 28 H 08/21/22 19:47 Blood Pressure 117/82 08/21/22 19:47 Pulse Oximetry 99 08/21/22 19:47 Temperature 36.6 C 08/21/22 19:47 Pulse 127 H 08/21/22 19:47 Respiratory Rate 28 H 08/21/22 19:47 Respiratory Effort Normal 08/21/22 19:55 Blood Pressure 117/82 08/21/22 19:47 Blood Pressure Position Sitting 08/21/22 19:47 Pulse Oximetry 99 08/21/22 19:47
== END 2022-08-21 20:35 | disposition left against medical advice (07) ==
PROVIDERS: Emergency Provider Student in an Organized Health Care Education/Training Program; PCP Nurse Practitioner Family
DX: F20.9 Schizophrenia, unspecified (principal); Z53.21 Procedure and treatment not carried out due to patient leaving prior to being seen by health care provider

== ENCOUNTER 2022-08-22 14:32 | Emergency (ER) | payer OTHER, MEDICAID, SELFPAY ==
[2022-08-22 14:36] VITALS: BP 125/87; PULSE 133; RESP 16; TEMP 36.6; O2SAT 99
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
[2022-08-22 15:25] LABS: Abs Immature Grans 0.02 10^3/uL (0.0-0.06); Absolute Basophil Count 0.04 10^3/uL (0.0-0.2); Absolute Eosinophil Count 0.04 10^3/uL (0.0-0.7); Absolute Lymphocyte Count 2.05 10^3/uL (1.2-3.4); Absolute Monocyte Count 0.45 10^3/uL (0.1-0.8); Absolute Neutrophil Count 4.46 10^3/uL (1.2-6.7); Basophils % 0.6; Eosinophils % 0.6; HCT 40.9 % (40.0-50.0); HGB 13.9 g/dL (13.5-17.5); Immature Grans % 0.3; MCH 28.6 pg (27.0-33.0); MCV 84 fL (80-95); MPV 9.7 fL (8.0-11.0); Monocytes % 6.4; Neutrophils % 63.1; Platelet Count 239 10^3/uL (130-400); RBC 4.86 10^6/uL (4.36-5.78); RDW 12.1 % (11.8-14.1); RDW-SD 36.5 fL; WBC 7.06 10^3/uL (4.4-10.8)
[2022-08-22 15:39] LABS: Anion Gap 8.1 mmol/L (3-11); BUN 20 mg/dL (7-18); CO2 27.9 mmol/L (21.0-32.0); Calcium 9.3 mg/dL (8.5-10.1); Chloride 105 mmol/L (98-107); Estimated GFR 102.55 (mL/min/1.73m2); Glucose 141 mg/dL (74-106); Potassium 3.7 mmol/L (3.5-5.1); Sodium 141 mmol/L (136-145)
[2022-08-22 15:40] LABS: ETHANOL BLOOD < 3.0 mg/dL (<10)
[2022-08-22 15:53] LABS: Bilirubin Negative (Negative); Blood Negative (Negative); Clarity Clear (Clear); Glucose Negative (Negative); Ketones Negative (Negative); Leukocyte Esterase Negative (Negative); Nitrite Negative (Negative); Specific Gravity <= 1.005 (1.005-1.025); Urobilinogen 0.2 mg/dL (Up to 0.2); pH 5.5 (5-8)
[2022-08-22 16:05] LABS: *AMPHETAMINES SCREEN URINE Negative (Negative); *BARBITURATES SCREEN URINE Negative (Negative); *BENZODIAZEPINES SCREEN URINE Negative (Negative); Cannabinoids THC Negative (Negative); Cocaine Screen,Urine Positive (Negative); METHADONE URINE SCREEN Negative (Negative); OPIATES URINE SCREEN Negative (Negative)
[2022-08-22 16:06] LABS: Tricyclic Antidepressants Negative (Negative)
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
== END 2022-08-22 19:50 | disposition home or self-care (01) ==
PROVIDERS: Emergency Provider Emergency Medicine Emergency Medical Services; PCP Nurse Practitioner Family
DX: F20.9 Schizophrenia, unspecified (principal)
CPT/HCPCS: 80048; 80307; 99284; 80320; 81003; 85025

== ENCOUNTER 2023-01-05 01:21 | Emergency (ER) | payer OTHER, MEDICAID, SELFPAY ==
--- NOTE | 2023-01-05 01:24 | ED.GENADUL_ITS ---
Discharge Plan Disposition Patient Disposition: Home Discharge Details Clinical Impression: Upper respiratory infection, viral, Schizophrenia, Soft tissue infection Primary Care Provider: Idania Ricks ED Provider: Jane Vela Home Meds and New Rx's Prescriptions: New doxycycline hyclate [Vibramycin] 100 mg capsule 100 mg PO BID Qty: 20 0RF Rx Instructions: Do not take on an empty stomach. Take a probiotic while on antibiotics. doxycycline hyclate [Vibramycin] 100 mg capsule 100 mg PO BID Qty: 20 0RF Rx Instructions: Take on a full stomach. No Action Invega Sustenna 234 MG/1.5 ML syringe 234 mg IM DIRECTED Patient Comments: takes once a month ibuprofen 600 MG tablet 600 mg PO Q8H PRNQty: 15 0RF methylphenidate HCl 20 mg Tablet 20 mg PO 3XD hydroxyzine HCl 10 MG tablet 50 mg PO TID paliperidone [Invega] 3 MG tablet extended release 24hr 6 mg PO DAILY atomoxetine [Strattera] 100 mg Capsule 100 mg PO DAILY clonidine HCl 0.1 mg tablet 1 mg PO BID Patient Comments: TK 1 T PO BID gabapentin 600 mg tablet 800 mg PO QID Patient Comments: TK 1 T PO QID . bupropion HCl 100 mg tablet sustained-release 12 hr 100 mg PO QAM Patient Comments: TK 1 T PO QAM Discharge Instructions Instructions: Cellulitis (ED), Upper Respiratory Infection (ED) Additional Instructions: 1. Start doxycycline 100 mg every 12 hours for 10 days. This is for the infection behind your left ear. Do not take this on an empty stomach. We recommend that you take a probiotic while on antibiotics. 2. Call your primary care provider for follow-up appointment and recheck and return to the emergency department for any new or worrisome symptoms. Discharge Data Discharge Physician: Jane Vela Medical Decision Making This is an unfortunate 32-year-old male with history of ADD anxiety and schizophrenia who presents with concerns of pneumonia and cold symptoms for a week and a half. He tells me that he is on housed but has been staying with a friend. He had a friend who drove him in tonight. He had 1 episode of posttussive emesis but has otherwise had no GI complaints. He has not had any diarrhea or abdominal pain. He tells me he has been immunized against COVID but has not tested himself since the onset of this illness. My plan is to obtain COVID RSV and influenza test and a chest x-ray to rule out pneumonia. He does have some pain and swelling behind his left ear but it is not over the mastoid and I am not concerned that he has mastoiditis. I will likely prescribe doxycycline for the soft tissue infection behind his ear which would cover any pulmonary/respiratory processes. He is not homicidal or suicidal and appears to have capacity to make decisions currently. We will observe him in the emergency department for any decompensation although his exam is reassuring and his room air O2 sats are 97% he is not febrile I do not see any indication for blood work at this time Differential Diagnosis Differential Diagnosis: Viral URI, pneumonia, soft tissue infection behind the left ear Medical Records Medical records reviewed: Yes I reviewed the patient's medical records. Imaging Data Radiologic Study: Imaging: X-Ray (PA and lateral chest x-ray) Radiologist's impression: No acute findings. Lab Data Lab results reviewed: Yes I reviewed the patient's lab results. Lab results narrative: COVID flu and RSV are negative HPI General Date/Time Provider Initiated Documentation: 01/05/23 01:24 EDT . HPI Narrative: Time seen was 1:24 AM in bed in bed 6. The patient is a 32-year-old male who states that he is homeless and has been staying with a friend who drove him in. He states he has had cold symptoms and is concerned he has pneumonia. He has had cough which is minimally productive, pain behind his left ear. His symptoms have been going on for about a week and a half. Tonight he had an episode of posttussive emesis. He has not had any abdominal pain or diarrhea and has not had any vomiting other than the one episode tonight. When I ask him if he has any pain he says he has pain everywhere. The patient says he has a history of psychosis and autism. He states he does not hear voices but he is telepathic. He is also complaining of pain behind his left ear and a sore throat. He has not tested himself for COVID but tells me he has been immunized. According to his old records he has a history of ADD, anxiety, and schizophrenia. The patient does endorse cigarette smoking as well as marijuana use but denies any alcohol abuse and states he is not using any illicit drugs. The patient denies any homicidal or suicidal ideation. He denies any history of asthma. He has had a cough occasionally productive of sputum. He has not taken any medications for his pain or any other medications for his symptoms. He denies any fevers or chills. He has had previous similar episodes when he was diagnosed with pneumonia in the past. Related Data Home Medications Medication Instructions Recorded Confirmed paliperidone palmitate 234 mg/1.5 234 mg IM DIRECTED 10/14/14 08/22/22 mL intramuscular syringe (Invega Sustenna) hydroxyzine HCl 10 mg tablet 50 mg PO TID 02/22/16 02/04/20 paliperidone 3 mg tablet,extended 6 mg PO DAILY 02/22/16 08/22/22 release 24 hr (Invega) ibuprofen 600 mg tablet 600 mg PO Q8H PRN ##15 09/16/16 08/22/22 atomoxetine 100 mg capsule 100 mg PO DAILY 03/08/18 02/04/20 (Strattera) bupropion HCl 100 mg tablet,12 hr 100 mg PO QAM 02/04/20 08/22/22 sustained-release clonidine HCl 0.1 mg tablet 1 mg PO BID 02/04/20 08/21/22 gabapentin 600 mg tablet 800 mg PO QID 02/04/20 08/22/22 methylphenidate HCl 20 mg tablet 20 mg PO 3XD 08/22/22 08/22/22 doxycycline hyclate 100 mg capsule 100 mg PO BID #20 caps 01/05/23 (Vibramycin) doxycycline hyclate 100 mg capsule 100 mg PO BID #20 caps 01/05/23 (Vibramycin) Previous Rx's Medication Instructions Recorded ibuprofen 600 mg tablet 600 mg PO Q8H PRN ##15 09/16/16 doxycycline hyclate 100 mg capsule 100 mg PO BID #20 caps 01/05/23 (Vibramycin) doxycycline hyclate 100 mg capsule 100 mg PO BID #20 caps 01/05/23 (Vibramycin) Allergies Allergy/AdvReac Type Severity Reaction Status Date / Time No Known Allergies Allergy Unverified 01/06/19 13:23 General GABRIEL: 2 Review of Systems Narrative: see hpi PFSH All Active Problems (Updated 01/05/23 @ 02:37 by Jane Vela MD) Soft tissue infection (Acute) Upper respiratory infection, viral (Acute) Schizophrenia (Chronic) Medical History ADD (attention deficit disorder) Anxiety Schizophrenia Surgical History Fracture of lower leg Social History Smoking/Tobacco Use Status: Current every day Tobacco Type: cigarettes Smoking risk assessment performed?: Yes Alcohol Intake: never Drug use: Current Sobriety Substance use type: marijuana Do you feel safe at home: Yes Do you feel safe in your relationship?: Yes Exam Narrative Exam Narrative: The patient is a well-developed thin male in no acute distress. He does not appear clinically intoxicated and does not appear to be reacting to internal stimuli. He is mildly hypertensive with a blood pressure of 153/90 heart rate 94. He is not tachypneic or febrile. His room air O2 sat is 97%. Const General: cooperative, comfortable, no acute distress, well developed and well hydrated Orientation: alert, awake and oriented x3 HENMT Head: normal to inspection, normocephalic and other (There is an area of erythema and tenderness behind the left ear. ) Ears: hearing grossly normal bilaterally, TM's normal bilaterally, mastoids normal and other (There is no fluctuance or lymphangitis behind the left ear) General nose exam: external nose normal, nares normal and nasal discharge clear Face and sinus: normal facial exam, sinuses nontender, face symmetric and other (The patient has 2 small abrasions lateral aspect left nose, 2mm &3mm) Mouth: oral mucosae normal, lip normal, tongue normal, oropharynx normal, moist mucous membranes and other (Normal phonation. The patient is handling secretions.) Throat: posterior oropharynx normal, tonsils normal and uvula midline Other: The patient has no evidence of cellulitis. Eyes General: appearance normal, both eyes and all related structures Eyelids: eyelids normal Conjunctivae: conjunctivae normal Sclera: sclerae normal Cornea: corneas normal Pupils: PERRL EOM: EOM intact bilaterally and No nystagmus Neck Neck: normal visual inspection, full ROM, no lymphadenopathy, no meningeal signs, trachea midline and supple Lymphatic: no lymphadenopathy noted Chest Chest: normal inspection of the chest Resp Effort & Inspection: normal respiratory effort, able to speak in complete sentences, no audible wheezes, no nasal flaring, no respiratory distress, no retractions, no stridor, not tachypneic, no tracheal deviation, no use of accessory muscles, No prolonged expiratory phase and other (Normal inspiratory to expiratory ratio.) Auscultation: clear to auscultation bilaterally, no rales, no rhonchi, no wheezes and no rubs Tactile Fremitus: tactile fremitus absent Cardio Jugular venous pressure: no JVD Palpation: normal PMI Rate: regular rate Rhythm: regular rhythm Heart Sounds: S1 normal, S2 normal, no gallops, no murmurs and no rubs GI Inspection: normal to inspection and non-distended Palpation: soft, no hepatosplenomegaly, no guarding and nontender Percussion: normal to percussion Auscultation: normal bowel sounds General: No CVA tenderness Back/Spine/Pelvis Back: no CVA tenderness and No back tenderness Cervical Spine: normal cervical lordosis, cervical ROM normal, No cervical muscular tenderness, No pain with cervical ROM, No cervical spinal tenderness and No step off deformity Thoracic/Lumbar Spine: thoracic and lumbar spine normal to inspection, No thoracic spinal tenderness and No lumbar spinal tenderness Skin General skin exam: turgor normal, no petechiae, no purpura and other (Skin is normal for ethnicity.) Lesions: lesion noted (Tender slightly swollen area in the crease behind his left ear) Rashes: no rashes Trauma: no lacerations or abrasions Neuro General: patient alert, patient awake, patient oriented x3, moves all extremities, no meningeal signs, no focal motor deficits and CN's II-XI intact bilaterally Cranial Nerves: CN's II-XI intact bilaterally, PERRL, accommodation normal, EOM intact bilaterally, no nystagmus, facial strength normal, tongue midline, hearing normal and no nystagmus Cognition: normal cognition Speech: speech normal Gait: normal gait Motor: muscle tone normal throughout and strength 5/5 throughout Sensory Exam: no sensory deficits noted DTR's: Rt Patellar: 2+, Lt Patellar: 2+, Rt Ankle: 1+ and Lt Ankle: 1+ Plantar Reflexes: Downgoing: bilateral Pupils: Normal pupillary reactivity/response: bilateral Extrem General: normal to inspection, full ROM, capillary refill normal, no clubbing, cyanosis or edema, no pedal edema and no calf tenderness Psych Appearance: disheveled Mental Status: mental status grossly normal Speech and Movement: speech and movement normal Affect: indifferent Attitude: cooperative Thought Process: normal Thought Content: normal, no homicidality and suicidality Insight: fair Judgment: fair Other: The patient appears to have capacity make medical decisions. Course I have reviewed the patient's labs and radiographs with him. I have told him we will put him on doxycycline and recommended he take a probiotic. He tells me he only has a short walk to go back to his friend's house where he is staying. We will get him a hot chocolate and a sandwich and I will discharge him home on doxycycline and and advised him to follow-up for any new or worrisome symptoms Reevaluation(s) Time: 02:31 Reevaluation: The patient feels improved and is requesting something to eat.
[2023-01-05 01:25] LABS: COVID-19 PCR Negative (Negative); Influenza A PCR Negative (Negative); Influenza B PCR Negative (Negative); RSV PCR Negative (Negative)
[2023-01-05 01:27] VITALS: BP 153/90; PULSE 94; RESP 19; TEMP 37.1; O2SAT 97
--- NOTE | 2023-01-05 01:30 | DI.RAD_ITS ---
Exam(s) XR CHEST 2V PA LATERAL EXAM: XR CHEST 2V PA LATERAL CLINICAL HISTORY: rule out pneumonia TECHNIQUE: 2D digital imaging was performed of the chest. Two images were obtained. PA and lateral views were obtained. COMPARISON: CR,XR XR RIBS RT W PA LAT CHEST from 09/12/2021 FINDINGS: MEDIASTINUM: Normal. HEART: Normal. PULMONARY VASCULATURE: Normal. LUNGS: Clear. PLEURAL SPACE: No pleural effusion or pneumothorax. BONE:Within normal limits for the patient's age. OTHER FINDINGS:Normal. IMPRESSION: No acute pulmonary findings. DATA REPOSITORY: RADIATION DOSE DELIVERED:
[2023-01-05 01:41] LABS: Source Nasopharynx
[2023-01-05 01:50] VITALS: PULSE 92; RESP 20; O2SAT 97
[2023-01-05] MEDS: Acetaminophen 500 MG TAB 1000 MG PO (01:58)
--- NOTE | 2023-01-05 01:59 | NUR.NOTE ---
Nursing Note:Pt was asked to undress for x-ray, the pt took off his shirt multiple times and then put it back on, the pt was also told to remove his necklace for x-ray and the pt did that several times, x-ray staff notified pt is cleared for x-ray and staff made attempts to have the pt undressed for x-ray, pt given po tylenol [employer]
--- NOTE | 2023-01-05 02:27 | DI.VRAD_ITS ---
PROCEDURE INFORMATION: Exam: XR Chest Exam date and time: 01/05/2023 1:04 AM Age: 32 years old Clinical indication: Cough TECHNIQUE: Imaging protocol: Radiologic exam of the chest. Views: 2 views. COMPARISON: CR XR RIBS RT W PA LAT CHEST 09/12/2021 7:12 PM FINDINGS: Lungs: Unremarkable. No consolidation. Pleural spaces: Unremarkable. No pleural effusion. No pneumothorax. Heart/Mediastinum: Unremarkable. No cardiomegaly. Bones/joints: Unremarkable. IMPRESSION: No acute findings. Dictated and Authenticated by: Tone Wheat MD. Ordering:MARY Lara MD
[2023-01-05] MEDS: Doxycycline Hyclate 100 MG CAP PO (02:39)
== END 2023-01-05 03:14 | disposition home or self-care (01) ==
PROVIDERS: Emergency Provider Emergency Medicine Emergency Medical Services; PCP Nurse Practitioner Family
DX: J06.9 Acute upper respiratory infection, unspecified (principal); B97.89 Other viral agents as the cause of diseases classified elsewhere; H60.12 Cellulitis of left external ear
CPT/HCPCS: 87637; 99283; 71046

== ENCOUNTER 2023-03-24 20:21 | Emergency (ER) | payer OTHER, MEDICAID, SELFPAY ==
[2023-03-24 20:25] VITALS: BP 134/65; PULSE 111; RESP 18; TEMP 37; O2SAT 99
--- NOTE | 2023-03-24 20:49 | ED.GENADUL_ITS ---
HPI General Mode of arrival: ambulatory . Date/Time Provider Initiated Documentation: 03/24/23 20:43 . Limitations to Documentation: no limitations . Information obtained by: patient . HPI Narrative: Patient presents to the emergency department for evaluation of suicidal ideation. He states that he is homeless and is looking for a place to live. Denies any recent medical illness. States he uses street drugs. When asked what kind he told me he did not know what he was given. Asked if he was suicidal he said yes, when asked how he would kill himself he said banging when putting a finger up to his job. Asked if he had a gun and he said yes he did Related Data Home Medications Medication Instructions Recorded Confirmed paliperidone palmitate 234 mg/1.5 234 mg IM DIRECTED 10/14/14 08/22/22 mL intramuscular syringe (Invega Sustenna) hydroxyzine HCl 10 mg tablet 50 mg PO TID 02/22/16 02/04/20 paliperidone 3 mg tablet,extended 6 mg PO DAILY 02/22/16 08/22/22 release 24 hr (Invega) ibuprofen 600 mg tablet 600 mg PO Q8H PRN ##15 09/16/16 08/22/22 atomoxetine 100 mg capsule 100 mg PO DAILY 03/08/18 02/04/20 (Strattera) bupropion HCl 100 mg tablet,12 hr 100 mg PO QAM 02/04/20 08/22/22 sustained-release clonidine HCl 0.1 mg tablet 1 mg PO BID 02/04/20 08/21/22 gabapentin 600 mg tablet 800 mg PO QID 02/04/20 08/22/22 methylphenidate HCl 20 mg tablet 20 mg PO 3XD 08/22/22 08/22/22 doxycycline hyclate 100 mg capsule 100 mg PO BID #20 caps 01/05/23 (Vibramycin) doxycycline hyclate 100 mg capsule 100 mg PO BID #20 caps 01/05/23 (Vibramycin) Previous Rx's Medication Instructions Recorded ibuprofen 600 mg tablet 600 mg PO Q8H PRN ##15 09/16/16 doxycycline hyclate 100 mg capsule 100 mg PO BID #20 caps 01/05/23 (Vibramycin) doxycycline hyclate 100 mg capsule 100 mg PO BID #20 caps 01/05/23 (Vibramycin) Allergies Allergy/AdvReac Type Severity Reaction Status Date / Time No Known Allergies Allergy Unverified 01/06/19 13:23 General Stated Complaint: Suicide-Atempt GABIREL: 2 Review of Systems All systems reviewed & are unremarkable except as noted in HPI and below Exam Narrative Exam Narrative: Thin male appears impaired. Head is atraumatic EOMs intact eyes injected nonicteric neck is supple full range of motion his gait is steady. He is awake alert oriented to person and place is a poor historian skin with no rashes or lesions Course Vital Signs Vital signs: Vital Signs Temperature 37.0 C 03/24/23 20:25 Pulse 111 H 03/24/23 20:25 Respiratory Rate 18 03/24/23 20:25 Blood Pressure 134/65 03/24/23 20:25 Pulse Oximetry 99 03/24/23 20:25 Temperature 37.0 C 03/24/23 20:25 Temperature Source Temporal Artery Scan 03/24/23 20:25 Pulse 111 H 03/24/23 20:25 Respiratory Rate 18 03/24/23 20:25 Respiratory Effort Normal, Non-Labored 03/24/23 20:30 Blood Pressure 134/65 03/24/23 20:25 Pulse Oximetry 99 03/24/23 20:25 Oxygen Delivery Method Room Air 03/24/23 20:25 Oxygen Flow Rate 0 03/24/23 20:25 Medical Decision Making Patient presents for suicidal ideation and also stating that he is homeless. Requesting mental health evaluation. Denies recent medical illness. Admits to drug use. Patient intermittently cooperating with exam and evaluation but also with some behavioral issues versus impairment. Staff say he is at baseline. His case is discussed with mental health provider and patient was not cooperating with evaluation. Will continue to monitor in the department overnight and reattempt mental health evaluation once patient is more cooperative. Report and care of patient will be signed out to Dr. Galvan for final disposition Medical Records Medical records reviewed: Yes I reviewed the patient's medical records. Quality:SDOH Health Related Social Needs: No Data to Display PFSH All Active Problems (Updated 02/05/23 @ 00:04 by SISSY MULLINS) Schizophrenia (Chronic) Medical History ADD (attention deficit disorder) Anxiety Schizophrenia Surgical History Fracture of lower leg Social History Smoking/Tobacco Use Status: Current every day Tobacco Type: cigarettes Smoking risk assessment performed?: Yes Alcohol Intake: never Drug use: Current Sobriety Substance use type: marijuana, crack/cocaine and methamphetamine Housing: homeless Do you feel safe at home: Yes Do you feel safe in your relationship?: Yes Discharge Plan Discharge Details Chief Complaint: Suicide-Atempt Primary Care Provider: Idania Ricks ED Provider: Belgica Lanza Home Meds and New Rx's Prescriptions: No Action Invega Sustenna 234 MG/1.5 ML syringe 234 mg IM DIRECTED Patient Comments: takes once a month ibuprofen 600 MG tablet 600 mg PO Q8H PRNQty: 15 0RF methylphenidate HCl 20 mg Tablet 20 mg PO 3XD hydroxyzine HCl 10 MG tablet 50 mg PO TID paliperidone [Invega] 3 MG tablet extended release 24hr 6 mg PO DAILY atomoxetine [Strattera] 100 mg Capsule 100 mg PO DAILY clonidine HCl 0.1 mg tablet 1 mg PO BID Patient Comments: TK 1 T PO BID gabapentin 600 mg tablet 800 mg PO QID Patient Comments: TK 1 T PO QID . bupropion HCl 100 mg tablet sustained-release 12 hr 100 mg PO QAM Patient Comments: TK 1 T PO QAM doxycycline hyclate [Vibramycin] 100 mg capsule 100 mg PO BID Qty: 20 0RF Rx Instructions: Do not take on an empty stomach. Take a probiotic while on antibiotics. doxycycline hyclate [Vibramycin] 100 mg capsule 100 mg PO BID Qty: 20 0RF Rx Instructions: Take on a full stomach.
--- NOTE | 2023-03-24 23:05 | ED.PROG_ITS ---
Date of service: 03/24/23 Time of Service: 23:05 Medical Decision Making This patient was signed out to me. Please see previous notes for H&P and initial eval; in brief, 32yo M presenting with SI, medically cleared, awaiting [facility] eval. Overnight appeared to be sleeping comfortably. Did not wake for assessment. Still needs med rec when awake, home meds not yet ordered. Signed out to oncoming physician; plan remains MH evaluation. Quality:SDOH Health Related Social Needs: No Data to Display Sign Out Sign Out Data: Sign Out Comment: Schizophrenic patient with history of drug use disorder who presents to the emergency department for psychiatric evaluation stating he is suicidal and will commit suicide by gun. Also reports homelessness wanting a place to stay. Mental health evaluation is pending his cooperation. Last updated by Belgica Lanaz NP at 03/24/23 22:48 Sign Out Comment: 32yo M, SI, voluntary. Pending [facility] eval. Last updated by Jazmyn Galvan MD at 03/25/23 05:27 Discharge Plan Discharge Details Chief Complaint: Suicide-Atempt Primary Care Provider: Idania Ricks ED Provider: Jazmyn Galvan Home Meds and New Rx's Prescriptions: No Action Invega Sustenna 234 MG/1.5 ML syringe 234 mg IM DIRECTED Patient Comments: takes once a month ibuprofen 600 MG tablet 600 mg PO Q8H PRNQty: 15 0RF methylphenidate HCl 20 mg Tablet 20 mg PO 3XD hydroxyzine HCl 10 MG tablet 50 mg PO TID paliperidone [Invega] 3 MG tablet extended release 24hr 6 mg PO DAILY atomoxetine [Strattera] 100 mg Capsule 100 mg PO DAILY clonidine HCl 0.1 mg tablet 1 mg PO BID Patient Comments: TK 1 T PO BID gabapentin 600 mg tablet 800 mg PO QID Patient Comments: TK 1 T PO QID . bupropion HCl 100 mg tablet sustained-release 12 hr 100 mg PO QAM Patient Comments: TK 1 T PO QAM doxycycline hyclate [Vibramycin] 100 mg capsule 100 mg PO BID Qty: 20 0RF Rx Instructions: Do not take on an empty stomach. Take a probiotic while on antibiotics. doxycycline hyclate [Vibramycin] 100 mg capsule 100 mg PO BID Qty: 20 0RF Rx Instructions: Take on a full stomach.
--- NOTE | 2023-03-25 03:27 | NUR.NOTE ---
Late entry, patient's belongings are in Zone B, locker 4.
[2023-03-25 12:09] LABS: Tricyclic Antidepressants Negative (Negative)
[2023-03-25 12:20] LABS: *AMPHETAMINES SCREEN URINE Negative (Negative); *BARBITURATES SCREEN URINE Negative (Negative); *BENZODIAZEPINES SCREEN URINE Negative (Negative); Cannabinoids THC Negative (Negative); Cocaine Screen,Urine Positive (Negative); METHADONE URINE SCREEN Negative (Negative); OPIATES URINE SCREEN Negative (Negative)
--- NOTE | 2023-03-25 13:51 | ED.PROG_ITS ---
Date of service: 03/25/23 Time of Service: 13:51 Medical Decision Making Resting comfortably no acute distress. Cleared by [facility] for discharge. Quality:SDOH Health Related Social Needs: No Data to Display Sign Out Sign Out Data: Sign Out Comment: Schizophrenic patient with history of drug use disorder who presents to the emergency department for psychiatric evaluation stating he is suicidal and will commit suicide by gun. Also reports homelessness wanting a place to stay. Mental health evaluation is pending his cooperation. Last updated by Belgica Lanza NP at 03/24/23 22:48 Sign Out Comment: 32yo M, SI, voluntary. Pending [facility] eval. Last updated by Jazmyn Galvan MD at 03/25/23 05:27 Discharge Plan Disposition Patient Disposition: Home Condition: Improving Discharge Details Chief Complaint: Suicide-Atempt Clinical Impression: Psychiatric disturbance Primary Care Provider: Idania Ricks ED Provider: Dong Martines Home Meds and New Rx's Prescriptions: No Action Invega Sustenna 234 MG/1.5 ML syringe 234 mg IM DIRECTED Patient Comments: takes once a month ibuprofen 600 MG tablet 600 mg PO Q8H PRNQty: 15 0RF methylphenidate HCl 20 mg Tablet 20 mg PO 3XD hydroxyzine HCl 10 MG tablet 50 mg PO TID paliperidone [Invega] 3 MG tablet extended release 24hr 6 mg PO DAILY atomoxetine [Strattera] 100 mg Capsule 100 mg PO DAILY clonidine HCl 0.1 mg tablet 1 mg PO BID Patient Comments: TK 1 T PO BID gabapentin 600 mg tablet 800 mg PO QID Patient Comments: TK 1 T PO QID . bupropion HCl 100 mg tablet sustained-release 12 hr 100 mg PO QAM Patient Comments: TK 1 T PO QAM doxycycline hyclate [Vibramycin] 100 mg capsule 100 mg PO BID Qty: 20 0RF Rx Instructions: Do not take on an empty stomach. Take a probiotic while on antibiotics. doxycycline hyclate [Vibramycin] 100 mg capsule 100 mg PO BID Qty: 20 0RF Rx Instructions: Take on a full stomach. Discharge Instructions Instructions: Depression (ED) Additional Instructions: Please follow-up with [facility].
--- NOTE | 2023-03-25 16:48 | PDOC.MHCN ---
Date of service: 03/25/23 Time of Service: 16:48 Suicide Severity Rate CSSRS Have you wished you were or wished you could go to sleep and not wake up?: Yes Have you actually had any thoughts of killing yourself?: No CSSRS4 Was this within the past three months?: No Screening Score Total Score: 2 Screening: Positive Mental Health Emergency Note Release [facility] release signed:: Yes Reason for Visit Mr. Jefferson is known to [facility] and presented in the ER on 03.24.23 stating he was suicidal and per his report, his mother told him to say that he was suicidal so that he could stay. He adamantly denied SI and HI today stating I have access all the time but I won't ever do it. He is heard requesting Ritalin, benzo's and wants number doses a day stating that is what he needs. He has a history of methylphenidate and gabapentin but again he has not been consistent with his appointments and at his med appointment on 11.20.22 his prescriber requested a UDS which has not been completed. Client reports having autism, narcolepsy and a prior addiction to crack. Client denies having a diagnosis of schizophrenia. Client reports that they are here because they are homeless and need support with housing, meds and transportation. Client repeatedly expressed dismay over having to walk the streets in the cold and stated that they cannot survive in these conditions and will not go back out there. The client was last seen on 11.20.22 by his med provider. He has been assessed by ES in the past year a few times however, did not meet criteria for an EE and denies SI and HI every time. In the last 2 weeks has the pt presented for ES prior to today?: Unknown Client Information Client is: Adult Outpatient Well Housed: No,status: Homeless Non Suicidal Self Injury Current: No History: No Safety Risk/Harm to Self or Others Current Ideation to Harm Self or Others: No Risk: Does risk to harm exist?: No Risk: Low Risk Duty to warn indicated: No Asssessment/Mental Status Appearance: Disheveled and Poor hygiene Attitude: Cooperative Behavior: Hyperactivity and Repetitive movements Speech: Other (Rapid ) Affect: Cogruent with mood Mood: Stressed Thought process: Racing, Loose associations and Tangential Hallucinations: yes, (possible visual; client appeared to be having a conversation with someone that only they could see. ) Visual and Auditory Delusions: No Attention: Poor concentration Perception: Not impaired Orientation: Disoriented in (how much time had passed; hours felt like days ) Time Memory: Intact Insight: Fair Judgement: Fair Neurovegetative Symptoms Sleep: Decrease Appetitie: Increase Interests: Increase Energy: Increase Libido: Not applicable Substance Use: Drug Issues: Dependence Do you use nicotine?: Yes Have you used substances in the last 7 days?: yes, Crack and THC although he denied use of THC. Additional Issues: Assaultive/Threatening Behavior: No Medical Concerns: No Client engaged in active self harm w/weapon: No Threatening to run away: No Child reported abuse/neglect: No Voluntarily presenting for services: Yes Domestic violence is a concern: No Extreme Psychosis or extreme behavior is present: No Impression Client's appearance was disheveled. During the assessment client's speech was very rapid, their thoughts were disorganized and tangential with loose associations. Client was also very restless. Client was cooperative but required redirection of attention, at times, to answer questions and responded by answering the question presented. Client described their mood as pretty good. Client was very preoccupied with not receiving their medication for the medical conditions that they reported and verbally expressed frustration with the situation in an appropriate fashion. Client appeared to be fighting the urge to fall asleep at times. Client appeared to be having involuntary movements during the assessment moving his hands and arms around as if he was using them for something. He also appeared sedated and as if he was on some sort of medication that would make him drowsy. Briefly, towards the end of the interview, client appeared to be speaking to someone that nobody else could see. Client did not report having hallucinations. Client declined to safety-plan saying they wouldn't follow it. He has been referred to [facility] and [facility] in the past however, he has either not followed through or does not meet their criteria. Resources Reosurces reviewed and given:: Other Plan/Disposition Recommended Disposition: PCP/Office visit. Plan: Client declined to safety plan. Discharged back to the community to follow up with services that can meet his needs of housing and food etc. It was also recommended that he connect with his PCP for medication needs. Person reported agreement to plan: Yes Reports/communication Outcome discussed with: ED/Personnel
== END 2023-03-25 14:50 | disposition home or self-care (01) ==
PROVIDERS: Nurse Practitioner Acute Care; Emergency Provider Emergency Medicine; PCP Nurse Practitioner Family
DX: R45.851 Suicidal ideations (principal); F20.9 Schizophrenia, unspecified; F19.10 Other psychoactive substance abuse, uncomplicated; F17.210 Nicotine dependence, cigarettes, uncomplicated; Z59.00 Homelessness unspecified
CPT/HCPCS: 00123; 80307; 99284

== ENCOUNTER 2023-10-02 19:37 | Emergency (ER) | payer OTHER, MEDICAID, SELFPAY ==
[2023-10-02 19:52] VITALS: BP 125/85; PULSE 100; RESP 18; TEMP 37.1; O2SAT 97
== END 2023-10-02 21:19 | disposition left against medical advice (07) ==
LOC: ER 20:26
PROVIDERS: PCP Nurse Practitioner Family
DX: Z53.21 Procedure and treatment not carried out due to patient leaving prior to being seen by health care provider (principal)

== ENCOUNTER 2024-01-20 21:41 | Emergency (ER) | payer OTHER, MEDICAID, SELFPAY ==
[2024-01-20 21:43] VITALS: BP 137/72; PULSE 103; RESP 16; TEMP 36.3; O2SAT 98
[2024-01-20 21:52] VITALS: BP 137/72; O2SAT 98
[2024-01-20] MEDS: Metoclopramide 10 MG/2 ML VIAL IVP (22:18)
[2024-01-20] MEDS: Acetaminophen 500 MG TAB 1000 MG PO (22:18)
[2024-01-20 22:24] LABS: Abs Immature Grans 0.02 10^3/uL (0.0-0.06); Absolute Basophil Count 0.02 10^3/uL (0.0-0.2); Absolute Eosinophil Count 0.05 10^3/uL (0.0-0.7); Absolute Lymphocyte Count 1.87 10^3/uL (1.2-3.4); Absolute Monocyte Count 0.64 10^3/uL (0.1-0.8); Absolute Neutrophil Count 5.28 10^3/uL (1.2-6.7); Basophils % 0.3 %; Eosinophils % 0.6 %; HCT 42.9 % (40.0-50.0); HGB 14.2 g/dL (13.5-17.5); Immature Grans % 0.3 %; Lymphocytes % 23.7 %; MCH 27.7 pg (27.0-33.0); MCHC 33.1 % (32.0-36.0); MCV 84 fL (80-95); MPV 10.3 fL (8.0-11.0); Monocytes % 8.1 %; Platelet Count 240 10^3/uL (130-400); RBC 5.12 10^6/uL (4.36-5.78); RDW 13.1 % (11.8-14.1); WBC 7.88 10^3/uL (4.4-10.8)
--- NOTE | 2024-01-20 22:28 | ED.GENADUL_ITS ---
Discharge Plan Disposition Patient Disposition: Home Condition: Good Discharge Details Clinical Impression: Vomiting Primary Care Provider: Idania Ricks ED Provider: Jazmyn Galvan Home Meds and New Rx's Prescriptions: Continued ibuprofen 600 MG tablet 600 mg PO Q8H PRNQty: 15 0RF gabapentin 600 mg tablet 800 mg PO TID Patient Comments: TK 1 T PO QID . Discontinued methylphenidate HCl 20 mg Tablet 20 mg PO 3XD Discharge Instructions Instructions: Nausea and Vomiting, Adult ED Additional Instructions: Tylenol and ibuprofen over the counter for pain; follow the directions on the bottle. Metoclopramide up to every 8 hours as needed for nausea and vomiting. Call your primary care doctor this morning to schedule an appointment to be seen within the next 72 hours to followup on your visit here. Return to the emergency department for new or worsening symptoms including fever, inability to keep down fluids, new/different/worse pain, or if you have any other concerns. Referrals: Idania Ricks [Primary Care Provider] - HPI General Mode of arrival: EMS . Date/Time Provider Initiated Documentation: 01/20/24 21:49 . Limitations to Documentation: no limitations . Information obtained by: patient . HPI Narrative: 33yo M with hx schizophrenia and ADHD, currently undomiciled, presenting via EMS from homeless group home for vomiting. Was in his usual state of health today until after dinner, then felt nausated and vomited x 1 about 2 hours ago. Nonbloody nonbilious. Associated diffuse crampy abdominal pain that started at the same time. Last BM today, normal, no diarreha or constipation, no blood or melena. PO zofran from EMS which has not helped his nausea. Otherwise in his usual state of health with no fevers, chills, rash, dysuria, hematuria, or other concerns. Requests a sandwich. Related Data Home Medications ?Medication ?Instructions ?Recorded ?Confirmed ibuprofen 600 mg tablet 600 mg PO Q8H PRN ##15 09/16/16 01/20/24 gabapentin 600 mg tablet 800 mg PO TID 02/04/20 01/20/24 Previous Rx's ?Medication ?Instructions ?Recorded ibuprofen 600 mg tablet 600 mg PO Q8H PRN ##15 09/16/16 Allergies Allergy/AdvReac Type Severity Reaction Status Date / Time No Known Allergies Allergy Verified 01/20/24 21:56 General Stated Complaint: Nausea/Vomit/Diar GABRIEL: 4 Review of Systems Narrative: see HPI Exam Narrative Exam Narrative: General: Alert, well appearing, well nourished, in no acute distress. Head: Normocephalic, atraumatic Neck: Trachea midline, ?Neck supple. ENT: ?MMM.? No oropharygeal lesions or exudate. Cardiac: ?RRR, no murmurs appreciated Resp: No respiratory distress. CTAB. Abd: ?Soft, non-distended, nontender : ?No suprapubic tenderness. No CVA tenderness. Extremities: ?No deformities.? No peripheral edema. Neurologic: GCS 15. ? Moves all extremities freely against gravity Course Vital Signs Vital signs: Vital Signs Temperature 36.3 C L 01/20/24 21:43 Pulse 103 H 01/20/24 21:43 Respiratory Rate 16 01/20/24 21:43 Blood Pressure 137/72 01/20/24 21:43 Pulse Oximetry 98 01/20/24 21:43 Temperature 36.3 C L 01/20/24 21:43 Temperature Source Temporal Artery Scan 01/20/24 21:43 Pulse 103 H 01/20/24 21:43 Respiratory Rate 16 01/20/24 21:43 Respiratory Effort Normal 01/20/24 21:49 Blood Pressure 137/72 01/20/24 21:52 Pulse Oximetry 98 01/20/24 21:52 Oxygen Delivery Method Room Air 01/20/24 21:52 Oxygen Flow Rate 0 01/20/24 21:43 Pain Level 7 01/20/24 21:52 Lab/Test Results Lab/Test Results: Laboratory Tests Range/Units 01/20/24 22:00 WBC (4.4-10.8) 10^3/uL 7.88 RBC (4.36-5.78) 10^6/uL 5.12 Hgb (13.5-17.5) g/dL 14.2 Hct (40.0-50.0) % 42.9 MCV (80-95) fL 84 MCH (27.0-33.0) pg 27.7 MCHC (32.0-36.0) % 33.1 RDW (11.8-14.1) % 13.1 Plt Count (130-400) 10^3/uL 240 MPV (8.0-11.0) fL 10.3 Immature Gran % % 0.3 Neutrophils % % 67.0 Lymphocytes % % 23.7 Monocytes % % 8.1 Eosinophils % % 0.6 Basophils % % 0.3 Nucleated RBC % (0.0-0.3) % 0.0 Absolute Neutrophils (1.2-6.7) 10^3/uL 5.28 Absolute Lymphocytes (1.2-3.4) 10^3/uL 1.87 Absolute Monocytes (0.1-0.8) 10^3/uL 0.64 Absolute Eosinophils (0.0-0.7) 10^3/uL 0.05 Absolute Basophils (0.0-0.2) 10^3/uL 0.02 Medical Decision Making 33yo M with hx schizophrenia and ADHD, currently undomiciled, presenting via EMS from homeless group home for vomiting onset two hours ago. Emesis x 1, nonbloody nonbilious, and diffuse crampy abdominal pain. No other associated symptoms. Vital signs reassuring on arrival, no abdominal tenderness on exam. With two hours of symptoms and no tenderness, would not get CT at this time. Unlikely bowel obstruction, mesenteric ischemia, appendicitis (though very early appendicitis certainly possible), or other surgical process. Will try reglan and tylenol for symptoms, risk stratify with labs. Labs reviewed as below, CBC reassuring with no leukocytosis or anemia, CMP with no actionable abnormalities, lipase not elevated (unlikely pancreatitis), UA not infected. Araujo score 1, unlikely appendicitis. On reassessment remains well appearing with no abdominal tenderness. PO challenged and tolerated well. Discharged; discharge instructions and return precautions were reviewed with patient who verbalized understanding. All questions were answered and he is in full agreement with the plan. Lab Data Lab results reviewed: Yes I reviewed the patient's lab results. Labs: Laboratory Tests Range/Units 01/20/24 22:00 WBC (4.4-10.8) 10^3/uL 7.88 RBC (4.36-5.78) 10^6/uL 5.12 Hgb (13.5-17.5) g/dL 14.2 Hct (40.0-50.0) % 42.9 MCV (80-95) fL 84 MCH (27.0-33.0) pg 27.7 MCHC (32.0-36.0) % 33.1 RDW (11.8-14.1) % 13.1 Plt Count (130-400) 10^3/uL 240 MPV (8.0-11.0) fL 10.3 Immature Gran % % 0.3 Neutrophils % % 67.0 Lymphocytes % % 23.7 Monocytes % % 8.1 Eosinophils % % 0.6 Basophils % % 0.3 Nucleated RBC % (0.0-0.3) % 0.0 Absolute Neutrophils (1.2-6.7) 10^3/uL 5.28 Absolute Lymphocytes (1.2-3.4) 10^3/uL 1.87 Absolute Monocytes (0.1-0.8) 10^3/uL 0.64 Absolute Eosinophils (0.0-0.7) 10^3/uL 0.05 Absolute Basophils (0.0-0.2) 10^3/uL 0.02 Sodium (136-145) mmol/L 140 Potassium (3.5-5.1) mmol/L 4.2 Chloride (98-107) mmol/L 104 Carbon Dioxide (21.0-32.0) mmol/L 29.4 Anion Gap (3-11) mmol/L 6.6 BUN (7-18) mg/dL 23 H Creatinine (0.70-1.30) mg/dL 0.7 Est GFR (CKD-EPI 2020) (mL/min/1.73m2) 124.77 Glucose (74-106) mg/dL 105 Calcium (8.5-10.1) mg/dL 9.5 Total Bilirubin (0.2-1.0) mg/dL 0.52 AST (15-37) U/L 20 ALT (16-63) U/L 37 Alkaline Phosphatase (46-116) U/L 143 H Total Protein (6.4-8.2) g/dL 7.0 Albumin (3.4-5.0) g/dL 3.7 Lipase (16-77) U/L < 10 L Urine Color (Yellow) Yellow Urine Clarity (Clear) Clear Urine pH (5-8) 6.0 Ur Specific [place] (1.005-1.025) >= 1.030 H Urine Protein (Neg-Trace) mg/dL 30 H Urine Ketones (Negative) mg/dL Negative Urine Blood (Negative) Negative Urine Nitrite (Negative) Negative Urine Bilirubin (Negative) Negative Urine Urobilinogen (Up to 0.2) mg/dL 0.2 Ur Leukocyte Esterase (Negative) Negative Urine RBC (0-2) HPF 0-2 Urine WBC (0-5) HPF 0-2 Ur Epithelial Cells (Negative) HPF Few Urine Crystals (Negative) HPF Negative Urine Bacteria (Negative) HPF Negative Urine Mucus (Negative) Heavy Urine Other (Negative) Rare [place] Ur Culture Indicated? No Urine Glucose (Negative) mg/dL Negative Quality:SDOH Health Related Social Needs: Health related social needs housing instability, house d, with risk of homelessness(Z59.811), material hardship(utilities)(Z59.87), food insecurity(Z59.41), transportation insecurity(Z59.82) PFSH All Active Problems (Updated 01/20/24 @ 22:37 by Jazmyn Galvan MD) Vomiting (Acute) Schizophrenia (Chronic) Medical History ADD (attention deficit disorder) Anxiety Schizophrenia Surgical History Fracture of lower leg Social History Smoking/Tobacco Use Status: Current every day Tobacco Type: cigarettes Smoking packs per day: 1 Smoking cigarettes per day: 20.0 Years smoked: 15 Smoking pack- years: 15.00 Tobacco: How many years used: 15 Smoking risk assessment performed?: Yes Alcohol Intake: never Drug use: Current Sobriety Substance use type: marijuana, crack/cocaine and methamphetamine Housing: homeless Do you feel safe at home: Yes Do you feel safe in your relationship?: Yes
[2024-01-20 22:29] LABS: Bilirubin Negative (Negative); Blood Negative (Negative); Clarity Clear (Clear); Glucose Negative (Negative); Ketones Negative (Negative); Leukocyte Esterase Negative (Negative); Nitrite Negative (Negative); Specific Gravity >= 1.030 (1.005-1.025); Urobilinogen 0.2 mg/dL (Up to 0.2)
[2024-01-20 22:35] LABS: Epithelial Cells Few HPF (Negative); RBC 0-2 HPF (0-2); WBC 0-2 HPF (0-5)
[2024-01-20 22:36] LABS: ALT 37 U/L (16-63); AST 20 U/L (15-37); Albumin 3.7 g/dL (3.4-5.0); Alkaline Phosphatase 143 U/L (46-116); Anion Gap 6.6 mmol/L (3-11); BUN 23 mg/dL (7-18); Bacteria Negative HPF (Negative); Bilirubin, Total 0.52 mg/dL (0.2-1.0); C & S Indicated? No; CO2 29.4 mmol/L (21.0-32.0); CREATININE 0.7 mg/dL (0.70-1.30); Calcium 9.5 mg/dL (8.5-10.1); Chloride 104 mmol/L (98-107); Crystals Negative HPF (Negative); Estimated GFR 124.77 (mL/min/1.73m2); Glucose 105 mg/dL (74-106); Lipase < 10 U/L (16-77); Mucus Heavy (Negative); Potassium 4.2 mmol/L (3.5-5.1); Sodium 140 mmol/L (136-145)
[2024-01-20] MEDS: Metoclopramide 10 MG TAB 30 MG PO (22:50)
[2024-01-20 23:38] VITALS: BP 132/78; PULSE 114; RESP 20; TEMP 36.8; O2SAT 98
== END 2024-01-20 23:33 | disposition home or self-care (01) ==
PROVIDERS: Emergency Provider Student in an Organized Health Care Education/Training Program; PCP Nurse Practitioner Family
DX: R11.2 Nausea with vomiting, unspecified (principal); F20.9 Schizophrenia, unspecified; F90.9 Attention-deficit hyperactivity disorder, unspecified type; F17.210 Nicotine dependence, cigarettes, uncomplicated; Z59.00 Homelessness unspecified
CPT/HCPCS: 80053; 83690; 99284; 81003; 81015; 85025; J2765

== ENCOUNTER 2024-06-17 19:33 | Emergency (ER) | payer OTHER, SELFPAY ==
[2024-06-17 19:35] VITALS: BP 113/68; PULSE 84; RESP 16; TEMP 36.9; O2SAT 98
--- NOTE | 2024-06-17 20:00 | DI.RAD_ITS ---
Exam(s) XR HIP RT COMPLETE AP PELVIS EXAM: XR HIP RT COMPLETE AP PELVIS CLINICAL HISTORY: Rt hip pain and buttock pain after fall. TECHNIQUE: 2D digital imaging was performed. COMPARISON: No exams were available for comparison FINDINGS: Two views No evidence of pelvic nor hip fracture. Bone density normal. No osseous lesions. No degenerative c hanges in the hips. Bowel gas pattern within the pelvis is unremarkable. IMPRESSION: No acute osseous findings in the pelvis and hips. DATA REPOSITORY: RADIATION DOSE DELIVERED:
--- NOTE | 2024-06-17 20:00 | DI.RAD_ITS ---
Exam(s) XR ELBOW RT COMPLETE EXAM: XR ELBOW RT COMPLETE CLINICAL HISTORY: R elbow pain and swelling after fall. TECHNIQUE: 2D digital imaging was performed. COMPARISON: No exams were available for comparison FINDINGS: 3 views There is soft tissue swelling over the olecranon bursa and dorsal aspect of the proximal forearm. Ho wever, there is no evidence of acute fracture nor elbow joint effusion. Radial head and neck appear unremarkable as does the capitellum. Epicondyles unremarkable. Bone density normal. No osseous les ions. No radiopaque foreign bodies. IMPRESSION: Dorsal soft tissue swelling over the elbow and proximal forearm but no acute osseous findings. DATA REPOSITORY: RADIATION DOSE DELIVERED:
--- NOTE | 2024-06-17 20:13 | ED.GENADUL_ITS ---
Discharge Plan Disposition Patient Disposition: Home Discharge Details Clinical Impression: Contusion Primary Care Provider: Idania Ricks ED Provider: Stephanie Givens Home Meds and New Rx's Prescriptions: New gabapentin 100 mg capsule 100 mg PO DAILY Qty: 7 0RF Continued ibuprofen 600 MG tablet 600 mg PO Q8H PRNQty: 15 0RF Discharge Instructions Additional Instructions: Your xrays were reassuring, no fractures or dislocations noted. You may apply ice for 15-20 min at a time for discomfort. You may continue to use tylenol and ibuprofen for discomfort. Gabapentin daily for pain control. Return to emergency care if you develop new numbness to arm or leg, loss of bowel/bladder function, or if you are very worried and need to be rechecked again immediately. Referrals: Idania Ricks [Primary Care Provider] - [facility] General Date/Time Provider Initiated Documentation: 06/17/24 19:39 . HPI Narrative: Mirza is a 30year old male who presents to the emergency department today for evaluation of right elbow and right hip pain. He presents from correctional facility accompanied by corrections officers. He reports that he was playing basketball when he got pushed by another player, causing him to fly off his feet and landed on his right side. He denies hitting his head, neck pain, back pain, shortness of breath, numbness/tingling to extremities, leg weakness, saddle anesthesia/paresthesias, loss of bowel or bladder control. He did sustain an abrasion to his right elbow which was cleaned and dressed by correctional nursing staff. He reports pain to his posterior right hip/buttock, especially with weightbearing and movement. Past medical history is significant for hypothyroidism and schizophrenia. Physical exam remarkable for abrasion to right elbow with moderate swelling. No active bleeding. Full extension and flexion of elbow, distal pulses intact bilaterally, sensation grossly intact. Faint ecchymosis noted to right buttock, no abrasions. Patient is able to weight-bear without difficulty. No crepitus or obvious deformities. No step-off/tenderness/deformity noted with palpation of C-spine/T-spine/L-spine. Full painless range of motion of neck. Easy work of breathing, patient able to speak in full sentences. D/dx includes but is not limited to: Contusion, fracture, other musculoskeletal injury. No red flags concerning for vascular compromise or acute cord compression/spinal cord injury. I independently interpreted the following tests: Right elbow/hip and pelvis xrays: no obvious abnormality or fracture noted. This was confirmed by radiologist. While in the emergency department, Mirza received ibuprofen for pain control; APAP given earlier today. Overall evaluation today reassuring, history and presentation c/w contusions and abrasion associated with fall. Reviewed discharge instructions with patient and correctional officers, including symptomatic management and red flags indicating need for return to [facility] care Related Data Home Medications ?Medication ?Instructions ?Recorded ?Confirmed ibuprofen 600 mg tablet 600 mg PO Q8H PRN ##15 09/16/16 06/17/24 gabapentin 100 mg capsule 100 mg PO DAILY #7 caps 06/17/24 Previous Rx's ?Medication ?Instructions ?Recorded ibuprofen 600 mg tablet 600 mg PO Q8H PRN ##15 09/16/16 gabapentin 100 mg capsule 100 mg PO DAILY #7 caps 06/17/24 Allergies Allergy/AdvReac Type Severity Reaction Status Date / Time No Known Allergies Allergy Verified 06/17/24 19:37 General Stated Complaint: Orthopedic GABRIEL: 4 Review of Systems Narrative: see HPI Exam Const General: cooperative, healthy appearing, comfortable, no acute distress and well developed Nutritional Appearance: average body habitus Orientation: alert HENMT Head: atraumatic Neck Neck: normal visual inspection and full ROM Resp Effort & Inspection: normal respiratory effort and able to speak in complete sentences Back/Spine/Pelvis Cervical Spine: normal cervical lordosis and cervical ROM normal Thoracic/Lumbar Spine: thoracic and lumbar spine normal to inspection Pelvis: buttock ecchymosis (R posterior rib/buttock) Sacrum: no ecchymosis, no erythema, no swelling and no tenderness Coccyx: no swelling and no tenderness Skin Trauma: abrasion (R elbow) Neuro General: patient alert, patient oriented x3, gait normal, tone normal and moves all extremities Cognition: normal cognition Speech: speech normal Extrem Right upper extremity: full ROM and elbow/forearm Details: tenderness, swelling and abrasion Left upper extremity: normal to inspection Right lower extremity: full ROM and hip/thigh Details: tenderness, normal ROM and ecchymosis; no swelling, no abrasions, no lacerations, no foreign bodies, no penetrating wound and no deformity Course Vital Signs Vital signs: Vital Signs Temperature 36.9 C 04/17/25 19:35 Pulse 84 06/17/24 19:35 Respiratory Rate 16 06/17/24 19:35 Blood Pressure 113/68 06/17/24 19:35 Pulse Oximetry 98 06/17/24 19:35 Temperature 36.9 C 06/17/24 19:35 Pulse 84 06/17/24 19:35 Respiratory Rate 16 06/17/24 19:35 Blood Pressure 113/68 06/17/24 19:35 Pulse Oximetry 98 06/17/24 19:35 Pain Level 8 06/17/24 19:35 Medical Decision Making Imaging Data Radiologic Study: Radiologist's impression: Exam(s) XR ELBOW RT COMPLETE EXAM: XR ELBOW RT COMPLETE CLINICAL HISTORY: R elbow pain and swelling after fall. TECHNIQUE: 2D digital imaging was performed. COMPARISON: No exams were available for comparison FINDINGS: 3 views There is soft tissue swelling over the olecranon bursa and dorsal aspect of the proximal forearm. However, there is no evidence of acute fracture nor elbow joint effusion. Radial head and neck appear unremarkable as does the capitellum. Epicondyles unremarkable. Bone density normal. No osseous lesions. No radiopaque foreign bodies. IMPRESSION: Dorsal soft tissue swelling over the elbow and proximal forearm but no acute osseous findings. Radiologic Study #2: Radiologist's impression: Exam(s) XR HIP RT COMPLETE AP PELVIS EXAM: XR HIP RT COMPLETE AP PELVIS CLINICAL HISTORY: Rt hip pain and buttock pain after fall. TECHNIQUE: 2D digital imaging was performed. COMPARISON: No exams were available for comparison FINDINGS: Two views No evidence of pelvic nor hip fracture. Bone density normal. No osseous lesions. No degenerative changes in the hips. Bowel gas pattern within the pelvis is unremarkable. IMPRESSION: No acute osseous findings in the pelvis and hips. Quality:SDOH Health Related Social Needs: No Data to Display PFSH All Active Problems (Updated 06/17/24 @ 21:58 by Stephanie Castro) Contusion (Acute) Schizophrenia (Chronic) Medical History ADD (attention deficit disorder) Anxiety Schizophrenia Surgical History Fracture of lower leg Social History Smoking/Tobacco Use Status: Current every day Tobacco Type: cigarettes Smoking packs per day: 1 Smoking cigarettes per day: 20.0 Years smoked: 15 Smoking pack- years: 15.00 Tobacco: How many years used: 15 Smoking risk assessment performed?: Yes Alcohol Intake: never Drug use: Current Sobriety Substance use type: marijuana, crack/cocaine and methamphetamine Housing: homeless Do you feel safe at home: Yes Do you feel safe in your relationship?: Yes
[2024-06-17] MEDS: Ibuprofen 600 MG TAB PO (20:26)
--- NOTE | 2024-06-17 21:52 | DI.VRAD_ITS ---
PROCEDURE INFORMATION: Exam: XR Right Elbow Exam date and time: 06/17/2024 8:52 PM Age: 34 years old Clinical indication: Other: R elbow pain and swelling after fall TECHNIQUE: Imaging protocol: Radiologic exam of the right elbow. Views: 3 or more views. COMPARISON: No relevant prior studies available. FINDINGS: Bones/joints: Normal. Soft tissues: Normal. IMPRESSION: No evidence for fracture. Dictated and Authenticated by: Liza Guan MD. Orderin Lesly Brown MD
--- NOTE | 2024-06-17 21:55 | DI.VRAD_ITS ---
PROCEDURE INFORMATION: Exam: XR Right Hip Exam date and time: 06/17/2024 8:47 PM Age: 34 years old Clinical indication: Other: RT hip pain and buttock pain after fall TECHNIQUE: Imaging protocol: Radiologic exam of the right hip. Views: 2 or 3 views hip with pelvis when performed. COMPARISON: No relevant prior studies available. FINDINGS: Bones/joints: Unremarkable. No acute fracture. Soft tissues: Unremarkable. IMPRESSION: No evidence for acute posttraumatic abnormality. Dictated and Authenticated by: Liza Guan MD. Orderin Lesly Brown MD
[2024-06-17 22:22] VITALS: PULSE 79; RESP 18; O2SAT 96
== END 2024-06-17 22:38 | disposition home or self-care (01) ==
PROVIDERS: Emergency Provider Nurse Practitioner Family; PCP Nurse Practitioner Family
DX: S30.0XXA Contusion of lower back and pelvis, initial encounter (principal); S50.311A Abrasion of right elbow, initial encounter; E03.9 Hypothyroidism, unspecified; W03.XXXA Other fall on same level due to collision with another person, initial encounter; Y93.67 Activity, basketball; Y92.148 Other place in prison as the place of occurrence of the external cause; F17.210 Nicotine dependence, cigarettes, uncomplicated
CPT/HCPCS: 99283; 73080; 73502

== ENCOUNTER 2024-08-07 15:18 | Inpatient (IN) | payer MEDICAID, SELFPAY ==
[2024-08-07] VITALS (13 sets, daily range): BP systolic 123–134; BP diastolic 57–88; PULSE 62–93; RESP 15–18; TEMP 36.9–38.2; O2SAT 96–99
--- NOTE | 2024-08-07 15:45 | DI.CT_ITS ---
Exam(s) CT FACIAL W EXAM: CT FACIAL W CLINICAL HISTORY: abscess, with facial erythema/ periorb bilaterally. TECHNIQUE: Imaging Protocol: Axial computed tomography images with coronal and sagittal reformatted images were created and reviewed CONTRAST MATERIAL: Intravenous: Omnipaque 350 Contrast volume:100 mL COMPARISON: CT HEAD WITHOUT CONTRAST from 03/06/2009 FINDINGS: Facial Bones: No definite fracture is noted in facial bones. No bony destructive changes are seen to suggest infection. Sinuses and Mastoids: There is opacification of a few ethmoid air cells. There is a small mucous re tention cyst in the left maxillary sinus. The remaining visualized paranasal sinuses and mastoid air cells are clear. Globes, extraocular muscles, optic nerves and retrobulbar fat: Normal. Upper aerodigestive tract: Normal. Mandible and bilateral temporomandibular joints: Normal. Soft tissues: There is soft tissue swelling overlying the frontal sinus and frontal bone extending in feriorly over the nasal bridge and in the left periorbital soft tissues. There is a fluid collection seen in the soft tissues over the nasal bridge measuring 1.1 cm transverse by 0.9 cm AP by 2 cm cran iocaudad. This is most suggestive of an abscess. There is mild edema seen in the soft tissues of th e left cheek. Enhancement: No abnormal enhancement. IMPRESSION: 1. There is soft tissue edema extending from the level of the frontal sinuses to the left cheek. The re is a 1.1 x 0.9 x 2 cm fluid collection in the soft tissues overlying the nasal bridge on the left consistent with an abscess. 2. No osseous abnormality is seen to suggest osteomyelitis. 3. Minimal paranasal sinus disease. RADIATION DOSE DELIVERED: 304.99mGy.cm Total DLP DATA REPOSITORY: All CT scans at this facility are submitted to the National Radiology Data Registry (NRDR) Dose Index Registry (DIR) with the [employer] (ACR). RADIATION OPTIMIZATION: All CT scans at this facility use at least one of these dose optimization te chniques: automated exposure control; mA and/or kV adjustment per patient size (includes targeted exa ms where dose is matched to clinical indication); or iterative reconstruction.
[2024-08-07 16:03] LABS: Abs Immature Grans 0.04 10^3/uL (0.0-0.06); Absolute Basophil Count 0.04 10^3/uL (0.0-0.2); Absolute Monocyte Count 1.25 10^3/uL (0.1-0.8); Basophils % 0.3 %; Eosinophils % 0.7 %; HCT 43.3 % (40.0-50.0); HGB 14.5 g/dL (13.5-17.5); Immature Grans % 0.3 %; Lymphocytes % 13.9 %; MCH 28.3 pg (27.0-33.0); MCHC 33.5 % (32.0-36.0); MCV 84 fL (80-95); MPV 10.2 fL (8.0-11.0); Monocytes % 9.2 %; Neutrophils % 75.6 %; Platelet Count 225 10^3/uL (130-400); RBC 5.13 10^6/uL (4.36-5.78); RDW 12.4 % (11.8-14.1); RDW-SD 38.1 fL; WBC 13.55 10^3/uL (4.4-10.8)
[2024-08-07 16:04] LABS: Absolute Eosinophil Count 0.09 10^3/uL (0.0-0.7); Absolute Lymphocyte Count 1.88 10^3/uL (1.2-3.4); Absolute Neutrophil Count 10.24 10^3/uL (1.2-6.7)
--- NOTE | 2024-08-07 16:16 | W.ED.GENAD ---
Discharge Plan Disposition Patient Disposition: Admit to [facility] Condition: Serious Discharge Details Clinical Impression: Abscess of face, Cellulitis of face, Sepsis Primary Care Provider: Idania Ricks ED Provider: Roya Albarran Home Meds and New Rx's Prescriptions: No Action ibuprofen 600 MG tablet 600 mg PO Q8H PRNQty: 15 0RF gabapentin 100 mg capsule 100 mg PO DAILY Qty: 7 0RF ceftriaxone 1 gram recon soln 1 g IM DAILY amoxicillin-pot clavulanate 875-125 mg tablet 1 tab PO BID methimazole 10 mg tablet 10 mg PO BID Patient Comments: TAKE 1 TABLET BY MOUTH TWICE DAILY acetaminophen 325 mg tablet,chewable 650 mg PO ONCE propranolol 20 mg tablet 20 mg PO BID Patient Comments: TAKE 1 TABLET BY MOUTH TWICE DAILY venlafaxine 75 mg tablet 75 mg PO BID risperidone 2 mg tablet 0.5 mg PO DAILY Patient Comments: TAKE 1 TABLET BY MOUTH TWICE DAILY FOR MOOD HPI General Date/Time Provider Initiated Documentation: 08/07/24 15:27. HPI Narrative: 34-year-old male from correctional facility with bilateral eye swelling and abscess for 2 days. Unsure about fever. No illicit substance use. History of schizophrenia, ADD, and Graves' disease, on methimazole. Significant pain in glabellar region. No difficulty swallowing or vision problems. Symptoms started a week ago after shaving between eyebrows. Related Data Home Medications ?Medication ?Instructions ?Recorded ?Confirmed ibuprofen 600 mg tablet 600 mg PO Q8H PRN ##15 09/16/16 08/07/24 gabapentin 100 mg capsule 100 mg PO DAILY #7 caps 06/17/24 08/07/24 acetaminophen 325 mg chewable 650 mg PO ONCE 08/07/24 08/07/24 tablet amoxicillin 875 mg-potassium 1 tab PO BID 08/07/24 08/07/24 clavulanate 125 mg tablet ceftriaxone 1 gram solution for 1 g IM DAILY 08/07/24 08/07/24 injection methimazole 10 mg tablet 10 mg PO BID 08/07/24 08/07/24 propranolol 20 mg tablet 20 mg PO BID 08/07/24 08/07/24 risperidone 2 mg tablet 0.5 mg PO DAILY 08/07/24 08/07/24 venlafaxine 75 mg tablet 75 mg PO BID 08/07/24 08/07/24 Previous Rx's ?Medication ?Instructions ?Recorded ibuprofen 600 mg tablet 600 mg PO Q8H PRN ##15 09/16/16 gabapentin 100 mg capsule 100 mg PO DAILY #7 caps 06/17/24 Allergies Allergy/AdvReac Type Severity Reaction Status Date / Time vancomycin AdvReac Mild Skin Rash Verified 08/07/24 17:53 General Stated Complaint: EyeProblem GABRIEL: 3 Exam Narrative Exam Narrative: General Appearance: Alert and oriented x4, answering questions appropriately. Vital signs: Temperature 101.5. HEENT: Significant facial swelling with 1-inch abscess in glabellar region, cellulitis extending to bilateral periorbital regions. Baseline exophthalmos due to Graves' disease, no worsening, no retro-orbital pain. No crepitus, significant proptosis, or meningismus. Tenderness on maxillary regions bilaterally. No headache. Respiratory: Within normal limits. Skin: Warm and dry, no rash. Neurological: Normal. Course Vital Signs Vital signs: Vital Signs Temperature 36.9 C 08/07/24 15:19 Pulse 87 08/07/24 15:19 Respiratory Rate 15 08/07/24 15:19 Blood Pressure 128/88 08/07/24 15:19 Pulse Oximetry 97 08/07/24 15:19 Temperature 36.9 C 08/07/24 15:23 Temperature Source Temporal Artery Scan 08/07/24 15:19 Pulse 87 08/07/24 15:23 Respiratory Rate 15 08/07/24 15:23 Blood Pressure 128/88 08/07/24 15:23 Pulse Oximetry 97 08/07/24 15:23 Oxygen Delivery Method Room Air 08/07/24 15:19 Oxygen Flow Rate 0 08/07/24 15:19 Pain Level 8 08/07/24 15:23 Lab/Test Results Lab/Test Results: 08/07/24 15:53 Blood Blood Culture - Pending 08/07/24 15:45 Blood Blood Culture - Pending Laboratory Tests Range/Units 08/07/24 15:53 WBC (4.4-10.8) 10^3/uL 13.55 H RBC (4.36-5.78) 10^6/uL 5.13 Hgb (13.5-17.5) g/dL 14.5 Hct (40.0-50.0) % 43.3 MCV (80-95) fL 84 MCH (27.0-33.0) pg 28.3 MCHC (32.0-36.0) % 33.5 RDW (11.8-14.1) % 12.4 Plt Count (130-400) 10^3/uL 225 MPV (8.0-11.0) fL 10.2 Immature Gran % % 0.3 Neutrophils % % 75.6 Lymphocytes % % 13.9 Monocytes % % 9.2 Eosinophils % % 0.7 Basophils % % 0.3 Nucleated RBC % (0.0-0.3) % 0.0 Absolute Neutrophils (1.2-6.7) 10^3/uL 10.24 H Absolute Lymphocytes (1.2-3.4) 10^3/uL 1.88 Absolute Monocytes (0.1-0.8) 10^3/uL 1.25 H Absolute Eosinophils (0.0-0.7) 10^3/uL 0.09 Absolute Basophils (0.0-0.2) 10^3/uL 0.04 VBG Lactate (<or=2.0) mmol/L 1.0 Medical Decision Making Leukocytosis at 13,000. CT facial soft tissue contrast showed abscess in glabellar region. Initial Assessment: 34-year-old male presents from correctional facility with bilateral eye swelling for 2 days and abscess. Denies fever, illicit substance use, difficulty swallowing, or vision changes. History of schizophrenia, ADD, Graves' disease. Significant pain in glabellar region. Alert and oriented. Significant facial swelling with 1-inch abscess in glabellar region extending to bilateral periorbital regions. Baseline exophthalmos due to Graves' disease, no worsening. No crepitus, significant proptosis, or retro-orbital pain. Tenderness on maxillary regions bilaterally. No meningismus or headache. ED Course: - Started on vancomycin. - Blood cultures and lactate levels initiated. - CT facial soft tissue with contrast showed abscess in glabellar region, no gas. - Visual acuity 20/25 right eye, 20/30 left eye. - 1% lidocaine with epinephrine, 3 cm? injected into glabellar region. - Incision and drainage performed with 11 blade. - Obtained 5 cm? purulent drainage, probed, deloculated, irrigated, placed 0.25-inch wick. - Reaction to vancomycin, switched to clindamycin 900 mg. - Increased facial swelling and redness. - Requires IV antibiotics for facial cellulitis with abscess. - Temperature 101.5, WBC 13,000. - Meets sepsis criteria. - Will receive fluids, Tylenol, and admission. - Case discussed with Dr. Bajwa, admitting hospitalist. Final Assessment: Patient with significant facial cellulitis and abscess, requiring IV antibiotics and admission due to sepsis criteria. Treatment included incision and drainage, antibiotics, and supportive care. Clinical Impression: - Facial cellulitis with abscess - Sepsis Disposition: - Admission [facility] Components Evaluation: - Number of Differential Diagnoses or Management Options: Facial cellulitis with abscess, Sepsis - Amount and Complexity of Data Reviewed: Blood cultures, lactate levels, CT facial soft tissue with contrast, visual acuity - Risk of Complication and Morbidity or Mortality: High risk due to sepsis criteria and significant facial cellulitis with abscess Quality:[facility] Health Related Social Needs: No Data to Display Critical Care Time Critical Care Time Attestation: 35 minutes of critical care time secondary to facial abscess with cellulitis meeting sepsis criteria diagnostic interpretation and review including labs CT and discussion admission with hospitalist and telemetry monitoring IV antibiotics PFSH All Active Problems (Updated 08/07/24 @ 21:14 by MARGY Velez) Sepsis (Acute) Cellulitis of face (Acute) Abscess of face (Acute) Periorbital cellulitis (Acute) Schizophrenia (Chronic) Medical History ADD (attention deficit disorder) Anxiety Schizophrenia Surgical History Fracture of lower leg Social History Smoking/Tobacco Use Status: Current every day Tobacco Type: cigarettes Smoking packs per day: 1 Smoking cigarettes per day: 20.0 Years smoked: 15 Smoking pack-years: 15.00 Tobacco: How many years used: 15 Smoking risk assessment performed?: Yes Alcohol Intake: never Drug use: Current Sobriety Substance use type: marijuana, crack/cocaine and methamphetamine Housing: homeless Do you feel safe at home: Yes Do you feel safe in your relationship?: Yes
[2024-08-07] MEDS: Normal Saline 1,000 ML 1000 ML IV (16:17)
[2024-08-07] MEDS: ACETAMINOPHEN 500 MG/50 ML BAG 200 MG IVPB (16:18)
[2024-08-07 16:20] LABS: ALT 37 U/L (16-63); AST 38 U/L (15-37); Albumin 4.2 g/dL (3.4-5.0); Alkaline Phosphatase 308 U/L (46-116); Anion Gap 9.5 mmol/L (3-11); BUN 14 mg/dL (7-18); Bilirubin, Total 0.5 mg/dL (0.2-1.0); CO2 28.5 mmol/L (21.0-32.0); CREATININE 0.8 mg/dL (0.70-1.30); Calcium 9.1 mg/dL (8.5-10.1); Chloride 99 mmol/L (98-107); Glucose 119 mg/dL (74-106); Potassium 3.4 mmol/L (3.5-5.1); Sodium 137 mmol/L (136-145); Total Protein 8.1 g/dL (6.4-8.2)
[2024-08-07] MEDS: Normal Saline - Diluent 50 ML VIAL IJ (16:33)
[2024-08-07] MEDS: Omnipaque 350 MG/ML 100 ML BTL IJ (16:34)
[2024-08-07 16:49] LABS: Lab Add On Test DONE
[2024-08-07 16:53] LABS: TSH (W/Ref FT4) < 0.01 uIU/mL (0.36-3.74)
[2024-08-07 16:55] LABS: FREE T4 1.02 ng/dL (0.76-1.46)
[2024-08-07 17:02] LABS: ESR 15 mm/hr (0-15)
[2024-08-07 17:08] LABS: C-Reactive Protein 6.72 mg/dL (<or=0.5)
[2024-08-07] MEDS: Lidocaine 1% Multi-Dose W/EPI 1/100,000 50 ML VIAL (17:31)
[2024-08-07 17:33] LABS: Bilirubin Negative (Negative); Blood Negative (Negative); Clarity Clear (Clear); Glucose Negative (Negative); Ketones Negative (Negative); Leukocyte Esterase Negative (Negative); Nitrite Negative (Negative); Specific Gravity 1.015 (1.005-1.025); Urobilinogen 0.2 mg/dL (Up to 0.2)
[2024-08-07] MEDS: diphenhydrAMINE 50 MG/ML VIAL 25 MG IVP (17:56)
[2024-08-07] MEDS: CLINDAMYCIN 900 MG/50 ML BAG 50 MG IVPB (17:57)
--- NOTE | 2024-08-07 18:14 | DI.VRAD_ITS ---
PROCEDURE INFORMATION: Exam: CT Maxillofacial With Contrast Exam date and time: 08/07/2024 4:30 PM Age: 34 years old Clinical indication: Other: Abscess, with facial erythema/ periorb bilaterally TECHNIQUE: Imaging protocol: Computed tomography of the face with contrast. Total images: 906 Contrast material: OMNI 350; Contrast volume: 100 ml; Contrast route: INTRAVENOUS (IV); COMPARISON: US THYROID 05/19/2024 8:33 AM FINDINGS: Paranasal sinuses: Mucosal thickening left maxillary sinus. Mild ethmoid sinusitis. Sphenoid sinuses are clear. Ethmoid sinuses are clear. Mild frontal sinusitis. Orbital cavities: Orbits are normal. Globes are unremarkable. Nasal cavity: Slight right to left nasal septal deviation. Salivary glands: Normal Pharynx: Visualized portions within normal limits Bones: No acute fracture. Soft tissues: Diffuse facial edematous changes with left paranasal fluid collection measuring 2.1 x 1.1 cm. This may represent a developing abscess. IMPRESSION: 1. Diffuse facial edematous changes with left paranasal fluid collection measuring 2.1 x 1.1 cm. This may represent a developing abscess. 2. Slight right to left nasal septal deviation. 3. Mild ethmoid sinusitis. 4. Mild frontal sinusitis. Dictated and Authenticated by: Josiah Ponce MD. Orderin Avis Pryor MD
--- NOTE | 2024-08-07 21:00 | W.PM.HP.N ---
Date of service: 08/07/24 Time of Service: 21:01 Assessment and Plan Assessment and plan (1) Periorbital cellulitis: Status: Acute Assessment and plan: The patient comes in w/ diffuse L periorbital cellulitis which may have been secondary to cutting himself while shaving. Recommend to pursue medical tx w/ monotherapy Augmentin and monitor his response. Recommend to continue w/ ABX for 5-7 days and re-evaluate. If no improvement he may reuire surgical management. Check MRSA nares for any risk of MRSA but I suspect it is low for now. -Cont w/ Augmentin and monitor -Check MRSA nares -Re-evaluate medical management and consider if surgical drainage is needed (2) Schizophrenia: Status: Chronic Assessment and plan: -Cont w/ Risperidone 0.5mg daily (3) Graves disease: Status: Acute Assessment and plan: -Cont w/ Methimazole 10mg bid History of Present Illness History of Present Illness Chief Complaint: Swollen Eye Narrative: The patient is a 34 y/o C M w/ no significant PMH who comes in today due to progressive L eye swelling which has been on-going sine 08/05/24. He does not recall any incidents but on further question did recall shaving his eyebrow. He has had progressive swelling to the point where he is unable to open the eyelid. Associated symptoms include erythema, warmth and swelling. He does have pressure around the orbit but is unable to state if he has any eye pain, vision changes or photophobia as his eye is shut. He has noted a purulent discharge from the area. He has no fever, chills or night sweats. He does have a history of migraines but does not report of any new headaches or sinus pain/pressure. He does have poor dentition but does not have significant dental pain. He denies any pain w/ mastication, dysphagia or odynophagia. He has no chest pain, palpitations, coughing, wheezing or dyspnea. Review of Systems Constitutional Constitutional: Denies chills, Denies fever(s), Reports headache(s) (Chronic REZA), Denies night sweats and Denies weight loss Eyes Eyes: Reports exophthalmos and Reports eye discharge ENT Ears, Nose, Mouth, and Throat: Denies dysphagia, Reports headache(s) (Chronic REZA), Denies neck pain, Denies odynophagia, Denies throat swelling and Denies tongue swelling Cardiovascular Cardiovascular: Denies chest pain, Denies chest pain at rest, Denies chest pain with activity, Denies irregular heart rhythm and Denies dyspnea Respiratory Respiratory: Denies chest congestion, Denies cough, Denies hemoptysis, Denies dyspnea and Denies wheezing Gastrointestinal Gastrointestinal: Denies melena, Denies bloating, Denies hematochezia, Denies constipation, Denies dysphagia, Denies diarrhea, Denies loose stools, Denies nausea, Denies odynophagia and Denies vomiting Musculoskeletal Musculoskeletal: Denies arthralgias, Denies joint swelling and Denies neck pain Neurologic Neurologic: Reports headache(s) (Chronic REZA) Psychiatric Psychiatric: Denies anxiety and Denies depression Allergic/Immunologic Allergic/Immunologic: Denies throat swelling, Denies tongue swelling and Denies wheezing PFSH All Active Problems (Updated 08/07/24 @ 21:22 by Indra Bajwa MD) Graves disease (Acute) Sepsis (Acute) Cellulitis of face (Acute) Abscess of face (Acute) Periorbital cellulitis (Acute) Schizophrenia (Chronic) Medical History ADD (attention deficit disorder) Anxiety Schizophrenia Surgical History Fracture of lower leg Social History Smoking/Tobacco Use Status: Current every day Tobacco Type: cigarettes Smoking packs per day: 1 Smoking cigarettes per day: 20.0 Years smoked: 15 Smoking pack-years: 15.00 Tobacco: How many years used: 15 Smoking risk assessment performed?: Yes Alcohol Intake: never Drug use: Current Sobriety Substance use type: marijuana, crack/cocaine and methamphetamine Housing: homeless Do you feel safe at home: Yes Do you feel safe in your relationship?: Yes Meds Allergies and Home Medications Allergies Allergy/AdvReac Type Severity Reaction Status Date / Time vancomycin AdvReac Mild Skin Rash Verified 08/07/24 17:53 Home Medications ?Medication ?Instructions ?Recorded ?Confirmed ?Type ibuprofen 600 mg tablet 600 mg PO Q8H PRN ##15 09/16/16 08/07/24 Rx gabapentin 100 mg capsule 100 mg PO DAILY #7 caps 06/17/24 08/07/24 Rx acetaminophen 325 mg chewable 650 mg PO ONCE 08/07/24 08/07/24 History tablet amoxicillin 875 mg-potassium 1 tab PO BID 08/07/24 08/07/24 History clavulanate 125 mg tablet ceftriaxone 1 gram solution for 1 g IM DAILY 08/07/24 08/07/24 History injection methimazole 10 mg tablet 10 mg PO BID 08/07/24 08/07/24 History propranolol 20 mg tablet 20 mg PO BID 08/07/24 08/07/24 History risperidone 2 mg tablet 0.5 mg PO DAILY 08/07/24 08/07/24 History venlafaxine 75 mg tablet 75 mg PO BID 08/07/24 08/07/24 History Exam Const General: cooperative and no acute distress Orientation: alert, awake and oriented x3 HENMT Head: normal to inspection Ears: hearing grossly normal bilaterally General nose exam: external nose normal Eyes Periorbital: periorbital findings abnormal Other: Significant L periorbital swelling w/ erythema and slight discharge Slight swelling of R eyelids I am able to open up his L eyelids slightly and sclera is white Neck Neck: normal visual inspection Chest Chest: normal inspection of the chest Resp Effort & Inspection: normal respiratory effort and no stridor Auscultation: clear to auscultation bilaterally Cardio Rate: regular rate Rhythm: regular rhythm Heart Sounds: S1 normal and S2 normal GI Inspection: normal to inspection Auscultation: normal bowel sounds Skin General skin exam: no rashes or lesions noted Neuro General: patient alert, patient awake and patient oriented x3 Speech: speech normal Results Imaging Imaging Studies: CT Orbits: 1. Diffuse facial edematous changes with left paranasal fluid collection measuring 2.1 x 1.1 cm. This may represent a developing abscess. 2. Slight right to left nasal septal deviation. 3. Mild ethmoid sinusitis. 4. Mild frontal sinusitis. Labs 08/07/24 15:53 08/07/24 15:53 Labs: Laboratory Results - last 24 hr 08/07/24 08/07/24 08/07/24 15:53 16:40 17:25 WBC 13.55 H RBC 5.13 Hgb 14.5 Hct 43.3 MCV 84 MCH 28.3 MCHC 33.5 RDW 12.4 Plt Count 225 MPV 10.2 Immature Gran % 0.3 Neutrophils % 75.6 Lymphocytes % 13.9 Monocytes % 9.2 Eosinophils % 0.7 Basophils % 0.3 Nucleated RBC % 0.0 Absolute Neutrophils 10.24 H Absolute Lymphocytes 1.88 Absolute Monocytes 1.25 H Absolute Eosinophils 0.09 Absolute Basophils 0.04 ESR 15 VBG Lactate 1.0 Sodium 137 Potassium 3.4 L Chloride 99 Carbon Dioxide 28.5 Anion Gap 9.5 BUN 14 Creatinine 0.8 Est GFR (CKD-EPI 2020) 119.10 Glucose 119 H Calcium 9.1 Total Bilirubin 0.5 AST 38 H ALT 37 Alkaline Phosphatase 308 H C-Reactive Protein 6.72 H Total Protein 8.1 Albumin 4.2 TSH < 0.01 L Free T4 1.02 Urine Color Yellow Urine Clarity Clear Urine pH 7.0 Ur Specific [place] 1.015 Urine Protein Negative Urine Ketones Negative Urine Blood Negative Urine Nitrite Negative Urine Bilirubin Negative Urine Urobilinogen 0.2 Ur Leukocyte Esterase Negative Urine Glucose Negative Add-On Test Request DONE Last Vital Signs Temp 37.1 C 08/07/24 17:13 Pulse 70 08/07/24 19:22 Resp 18 08/07/24 19:22 BP 123/66 08/07/24 19:22 Pulse Ox 97 08/07/24 19:22 Time Spent Time spent with Patient: 40-54 minutes Time was spent: preparing to see the patient(eg.review tests), obtaining and/or reviewing separately otained hiistory, ordering medications,tests, procedures, referring, communicating with other health manager respiratory care, indepentently interpreting results and counseling the patient
[2024-08-07] MEDS: Ibuprofen 600 MG TAB PO (22:37)
--- NOTE | 2024-08-07 22:53 | W.PCEDHO ---
Registration Status: Primary Language: Preferred Language: ED Information & Data Chief Complaint EyeProblem 08/07/24 16:19 Triage Note Patient brought in from 08/07/24 15:19 corrections with bilateral eye swelling for the last 2 days. significant swelling apparent. tearing, patient states hes able to see clearly at this time. Medical / Surgical History (Last Reviewed 01/05/23 @ 02:16 by Jane Vela MD) ADD (attention deficit disorder) Anxiety Schizophrenia (Last Reviewed 01/05/23 @ 02:16 by Jane Vela MD) Fracture of lower leg Most Recent Vital Signs Temperature 37.1 C 08/07/24 17:13 Temperature Source Oral 08/07/24 17:13 Pulse 73 08/07/24 22:32 Respiratory Rate 18 08/07/24 22:32 Blood Pressure 128/78 08/07/24 21:04 Blood Pressure Mean 94 08/07/24 21:04 Blood Pressure Position Left Lateral 08/07/24 17:13 Pulse Oximetry 97 08/07/24 22:32 Oxygen Delivery Method Room Air 08/07/24 17:13 Oxygen Flow Rate 0 08/07/24 17:13 Pain Level 8 08/07/24 15:23 Allergies vancomycin Adverse Reaction (Mild, Verified 08/07/24 17:53) Skin Rash Precautions Isolation Standard precaution 08/07/24 15:24 Active Medications Generic Name Dose Route Start Last Admin Trade Name Freq PRN Reason Stop Dose Admin Clindamycin Phosphate/Dextrose 900 mg in 50 mls @ 50 mls/hr 08/07/24 18:00 08/07/24 18:57 Cleocin In D5w IVPB Infused Q8H GERARD Infusion Ibuprofen 600 mg 08/07/24 21:27 08/07/24 22:37 Ibuprofen 600 Mg Tab PO 600 mg Q8H PRN Administration Iohexol 100 ml 08/07/24 16:45 08/07/24 16:34 Omnipaque 350 Mg/Ml 100 Ml Btl IJ 09/06/24 23:59 100 ml DIRECTED GERARD Administration Sodium Chloride 50 ml 08/07/24 16:45 08/07/24 16:33 Normal Saline - Diluent 50 Ml Vial IJ 50 ml .FOR DI USE GERARD Administration IV IV Catheter Type [Left Saline Lock Antecubital] IV Catheter Gauge [Left 18 Antecubital] Diet Orders Category Date Time Status Regular/Normal [DIET] Nutrition 08/08/24 Breakfast Ordered Diagnostics 08/07/24 08/07/24 08/07/24 Range/Units 17:25 16:40 15:53 WBC 13.55 H (4.4-10.8) 10^3/uL RBC 5.13 (4.36-5.78) 10^6/uL Hgb 14.5 (13.5-17.5) g/dL Hct 43.3 (40.0-50.0) % MCV 84 (80-95) fL MCH 28.3 (27.0-33.0) pg MCHC 33.5 (32.0-36.0) % RDW 12.4 (11.8-14.1) % Plt Count 225 (130-400) 10^3/uL MPV 10.2 (8.0-11.0) fL Immature Gran % 0.3 % Neutrophils % 75.6 % Lymphocytes % 13.9 % Monocytes % 9.2 % Eosinophils % 0.7 % Basophils % 0.3 % Nucleated RBC % 0.0 (0.0-0.3) % Absolute Neutrophils 10.24 H (1.2-6.7) 10^3/uL Absolute Lymphocytes 1.88 (1.2-3.4) 10^3/uL Absolute Monocytes 1.25 H (0.1-0.8) 10^3/uL Absolute Eosinophils 0.09 (0.0-0.7) 10^3/uL Absolute Basophils 0.04 (0.0-0.2) 10^3/uL ESR 15 (0-15) mm/hr VBG Lactate 1.0 (<or=2.0) mmol/L Sodium 137 (136-145) mmol/L Potassium 3.4 L (3.5-5.1) mmol/L Chloride 99 (98-107) mmol/L Carbon Dioxide 28.5 (21.0-32.0) mmol/L Anion Gap 9.5 (3-11) mmol/L BUN 14 (7-18) mg/dL Creatinine 0.8 (0.70-1.30) mg/dL Est GFR (CKD-EPI 2020) 119.10 (mL/min/1.73m2) Glucose 119 H (74-106) mg/dL Calcium 9.1 (8.5-10.1) mg/dL Total Bilirubin 0.5 (0.2-1.0) mg/dL AST 38 H (15-37) U/L ALT 37 (16-63) U/L Alkaline Phosphatase 308 H (46-116) U/L C-Reactive Protein 6.72 H (<or=0.5) mg/dL Total Protein 8.1 (6.4-8.2) g/dL Albumin 4.2 (3.4-5.0) g/dL TSH < 0.01 L (0.36-3.74) uIU/mL Free T4 1.02 (0.76-1.46) ng/dL Urine Color Yellow (Yellow) Urine Clarity Clear (Clear) Urine pH 7.0 (5-8) Ur Specific [place] 1.015 (1.005-1.025) Urine Protein Negative (Neg-Trace) mg/dL Urine Ketones Negative (Negative) mg/dL Urine Blood Negative (Negative) Urine Nitrite Negative (Negative) Urine Bilirubin Negative (Negative) Urine Urobilinogen 0.2 (Up to 0.2) mg/dL Ur Leukocyte Esterase Negative (Negative) Urine Glucose Negative (Negative) mg/dL Add-On Test Request DONE 08/07/24 16:17 Blood Culture - Pending Blood 08/07/24 15:53 Blood Culture - Pending Blood Intake and Output - 24 Hour Total 08/07/24 15:18 thru 08/07/24 18:57 Intake Total 1346.667 Output Total 325 Balance 1021.667 Weight 68.039 kg Intake: IV 1346.667 Output: Urine 325 Falls Risk Assessment Contributing Factors No Factors 08/07/24 15:38 Fall Total Score 0 08/07/24 15:38 Level of Risk Standard/Low Risk 08/07/24 15:38 Problems (Last Reviewed 01/05/23 @ 02:16 by Jane Vela MD) Graves disease (Acute) Periorbital cellulitis (Acute) Schizophrenia (Chronic) v v v v v v v v v Sending and/or Receiving Nurses: Please use comment section below to note any information pertinent to the patient hand-off not included above. Information / Comments:no questions Report received from:Piotr Johnson RN
[2024-08-08] MEDS: Acetaminophen 325 MG TAB 650 MG PO (01:01)
[2024-08-08 07:04] LABS: Abs Immature Grans 0.03 10^3/uL (0.0-0.06); Absolute Basophil Count 0.03 10^3/uL (0.0-0.2); Absolute Eosinophil Count 0.14 10^3/uL (0.0-0.7); Absolute Lymphocyte Count 3.38 10^3/uL (1.2-3.4); Absolute Monocyte Count 1.24 10^3/uL (0.1-0.8); Basophils % 0.3 %; Eosinophils % 1.3 %; HGB 13.5 g/dL (13.5-17.5); Immature Grans % 0.3 %; Lymphocytes % 30.5 %; MCH 29.5 pg (27.0-33.0); MCHC 34.6 % (32.0-36.0); MCV 85 fL (80-95); MPV 10.4 fL (8.0-11.0); Monocytes % 11.2 %; Neutrophils % 56.4 %; Platelet Count 202 10^3/uL (130-400); RBC 4.58 10^6/uL (4.36-5.78); RDW 12.8 % (11.8-14.1); RDW-SD 39.4 fL; WBC 11.09 10^3/uL (4.4-10.8)
[2024-08-08 07:10] LABS: Absolute Neutrophil Count 6.25 10^3/uL (1.2-6.7)
[2024-08-08 07:23] VITALS: BP 121/75; PULSE 61; RESP 17; TEMP 36.4; O2SAT 95
[2024-08-08] MEDS: risperiDONE 0.5 MG TAB PO (08:50)
[2024-08-08] MEDS: Propranolol 20 MG TAB PO ×2 (08:50→20:36)
[2024-08-08] MEDS: methIMAzole 5 MG TAB 10 MG PO ×2 (08:50→20:36)
[2024-08-08] MEDS: Venlafaxine 75 MG TAB PO ×2 (08:50→20:36)
[2024-08-08] MEDS: Gabapentin 100 MG CAP PO (08:50)
[2024-08-08] MEDS: Ibuprofen 600 MG TAB PO ×2 (08:50→16:13)
--- NOTE | 2024-08-08 11:10 | PGE_ITS ---
Date of Service Date of service: 08/08/24 Time of Service: 11:10 Assessment and Plan Assessment and plan (1) Periorbital cellulitis: Status: Acute Assessment and plan: s/p I&D in the ER, continue daptomycin while cultures blood cultures pending wound culture ordered. continue dressing changes and wound packing (2) Schizophrenia: Status: Chronic Assessment and plan: -Cont w/ Risperidone 0.5mg daily (3) Graves disease: Status: Acute Assessment and plan: -Cont w/ Methimazole 10mg bid discussed with DR Barksdale Subjective Subjective Patient reports: no new complaints, tolerating liquids well, tolerating a regular diet and afebrile Exam Const General: cooperative and no acute distress Orientation: alert, awake and oriented x3 HENMT Head: normal to inspection General nose exam: external nose normal Eyes Periorbital: periorbital findings abnormal Neck Neck: normal visual inspection Chest Chest: normal inspection of the chest Resp Effort & Inspection: normal respiratory effort Auscultation: clear to auscultation bilaterally Cardio Rate: regular rate Rhythm: regular rhythm GI Inspection: normal to inspection Auscultation: normal bowel sounds Skin General skin exam: no rashes or lesions noted Neuro General: patient alert, patient awake and patient oriented x3 Speech: speech normal Objective Last Vital Signs Temp 36.4 C L 08/08/24 07:23 Pulse 61 08/08/24 07:23 Resp 17 08/08/24 07:23 BP 121/75 08/08/24 07:23 Pulse Ox 95 08/08/24 07:23 Laboratory Results - last 24 hr 08/07/24 08/07/24 08/07/24 15:53 16:40 17:25 WBC 13.55 H RBC 5.13 Hgb 14.5 Hct 43.3 MCV 84 MCH 28.3 MCHC 33.5 RDW 12.4 Plt Count 225 MPV 10.2 Immature Gran % 0.3 Neutrophils % 75.6 Lymphocytes % 13.9 Monocytes % 9.2 Eosinophils % 0.7 Basophils % 0.3 Nucleated RBC % 0.0 Absolute Neutrophils 10.24 H Absolute Lymphocytes 1.88 Absolute Monocytes 1.25 H Absolute Eosinophils 0.09 Absolute Basophils 0.04 ESR 15 VBG Lactate 1.0 Sodium 137 Potassium 3.4 L Chloride 99 Carbon Dioxide 28.5 Anion Gap 9.5 BUN 14 Creatinine 0.8 Est GFR (CKD-EPI 2021) 119.10 Glucose 119 H Calcium 9.1 Total Bilirubin 0.5 AST 38 H ALT 37 Alkaline Phosphatase 308 H C-Reactive Protein 6.72 H Total Protein 8.1 Albumin 4.2 TSH < 0.01 L Free T4 1.02 Urine Color Yellow Urine Clarity Clear Urine pH 7.0 Ur Specific [place] 1.015 Urine Protein Negative Urine Ketones Negative Urine Blood Negative Urine Nitrite Negative Urine Bilirubin Negative Urine Urobilinogen 0.2 Ur Leukocyte Esterase Negative Urine Glucose Negative Add-On Test Request DONE 08/08/24 06:20 WBC 11.09 H RBC 4.58 Hgb 13.5 Hct 39.0 L MCV 85 MCH 29.5 MCHC 34.6 RDW 12.8 Plt Count 202 MPV 10.4 Immature Gran % 0.3 Neutrophils % 56.4 Lymphocytes % 30.5 Monocytes % 11.2 Eosinophils % 1.3 Basophils % 0.3 Nucleated RBC % 0.0 Absolute Neutrophils 6.25 Absolute Lymphocytes 3.38 Absolute Monocytes 1.24 H Absolute Eosinophils 0.14 Absolute Basophils 0.03 ESR VBG Lactate Sodium Potassium Chloride Carbon Dioxide Anion Gap BUN Creatinine Est GFR (CKD-EPI 2020) Glucose Calcium Total Bilirubin AST ALT Alkaline Phosphatase C-Reactive Protein Total Protein Albumin TSH Free T4 Urine Color Urine Clarity Urine pH Ur Specific [place] Urine Protein Urine Ketones Urine Blood Urine Nitrite Urine Bilirubin Urine Urobilinogen Ur Leukocyte Esterase Urine Glucose Add-On Test Request Time Spent with Patient Time Spent with Patient: 35-49 minutes Time was spent: preparing to see the patient(eg.review tests), obtaining and/or [facility], ordering medications,tests, procedures, indepentently interpreting results and counseling the patient
--- NOTE | 2024-08-08 11:33 | PHA.REVIEW2 ---
Pharmacy Admission Review Admission Clinical Review Admission Pharmacy Review: Graves disease (Acute) Periorbital cellulitis (Acute) vancomycin Adverse Reaction (Mild, Verified 08/07/24 17:53) Skin Rash Resuscitation Status Full Code Height 6 ft Weight 68.353 kg Pharmacy Admission Review Renal Dosing Renal Dosing: BUN 14 mg/dL (7-18) 08/07/24 15:53 Creatinine 0.8 mg/dL (0.70-1.30) 08/07/24 15:53 Medications needing adjustments: Reviewed (CrCl 125.79 mL/min) List of meds needing interventions: Current medications are okay Anticoagulation Anticoagulation: Hgb 13.5 g/dL (13.5-17.5) 08/08/24 06:20 Hct 39.0 % (40.0-50.0) L 08/08/24 06:20 Plt Count 202 10^3/uL (130-400) 08/08/24 06:20 Creatinine 0.8 mg/dL (0.70-1.30) 08/07/24 15:53 DVT Prophylaxis: Reviewed Medications: Enoxaparin (40mg daily) Relevant Labs Relevant Labs: ESR 15 mm/hr (0-15) 08/07/24 15:53 Sodium 137 mmol/L (136-145) 08/07/24 15:53 Potassium 3.4 mmol/L (3.5-5.1) L 08/07/24 15:53 Chloride 99 mmol/L (98-107) 08/07/24 15:53 C-Reactive Protein 6.72 mg/dL (<or=0.5) H 08/07/24 15:53 Electrolytes, C-Reactive P, ESR: Reviewed Cardiac Review BP, HR, EF%: Reviewed (BP and HR WNL) List meds needing interventions: Has order for propranolol 20mg BID QTc Review QTc: Reviewed (No EKG on file) IV to PO Switch IV Medications: Reviewed (daptomycin) Home Meds Home Med List reviewed: Reviewed Relevent Home Meds Not ordered & why?: acetaminophen, Augmentin (on daptomycin) and ceftriaxone (on daptomycin) Current Meds Current Medication Order Review: Intervened Comments: Added IV admission order set Pharmacy Antibiotic Review Relevant Labs: Relevant Labs 08/07/24 15:53 C-Reactive Protein 6.72 H WBC 11.09 10^3/uL (4.4-10.8) H 08/08/24 06:20 Temperature 36.4 C Temperature 38.2 C Pharmacy Antibiotic Activity: C/S review and Reviewed, no change Comments: Patient is on daptomycin, day 1, for perorbital cellulitis. WBC decreased from 13.55 and blood cultures are pending.
--- NOTE | 2024-08-08 11:49 | INITIAL_ITS ---
Date of service: 08/08/24 Time of Service: 11:49 Care Management Initial Assmt Initial Assessment Reason for Hospitalization: Periorbital cellulitis Functional Status/Living Situation Patient Presentation: [facility] evening with c/o bilateral eye swelling for 2 days. He reported that the symptoms started about a week ago after shaving between his eyebrows. He stated to that he had a pounding in his head and he could feel the fluid in his nasal passages and ear canals. Keyshawn was sitting in bed, watching TV, when CM met with him today. The security guards dispatcher was present. Keyshawn was very pleasant and polite. He stated that he is feeling much better. The head pressure is gone. Keyshawn stated that he will be [facility] soon, but will be homeless. He has a sex offender history, and this is making it difficult to find housing. His mother has a restraint against him, and he can not return there. CM reminded him about [facility], but he stated because of his history, they will not work with him. CM encouraged him to ask if there is any type of assistance offered by the [facility]. Town of Residence: [facility] Significant Other/Family: Local (Grandmother, Heaven Jason) Employment Status: Disabled Instrumental Activities of Daily Living (ADLs): Independent Advance Directives Advance Directives: Do you have an Advance Directive: N 08/17/22 01:58 AD On File at [facility]: N 08/17/22 01:58 Date Asked 08/07/24 08/07/24 15:20 AD Date Reviewed COLST On File at [facility] No 10/02/23 19:41 COLST Date Scanned Code Status Resuscitation Status Full Code Insurance Coverage/Financial Issues Insurance: [facility] Care Team Visit Care Team Role Provider Type Belgica Lanza NP NURSE PRACTITIONER Idania Ricks Primary Care Provider NURSE PRACTITIONER MARGY Velez Emergency Provider [facility] Indra Bajwa MD Admit Provider [facility] STAFF PHYSICIAN Attending Provider Discharge Potential Discharge Needs: PCP F/U Appt Anticipated Barriers to Discharge: None Identified Patient/Family Education Needs: Review discharge instructions, discuss Ask Me Three Transportation: Facility Transport Plan: Mirza will return to [facility] once he is medically stable. He will f/u with the facility provider and continue per his plan of care. CM will help coordinate discharge with [facility], who will transport him back to the facility. CM will continue to follow. Social Determinants of Health Screening Will the Patient Participate in the Screening?: Declined to provide In the past 12 months, have you had to go without electric, gas, oil or water in your home?: choose not to answer Has lack of transportation kept you from medical appointments or from doing things needed for daily living?: choose not to answer Has anyone in your life made you feel unsafe or unsupported?: choose not to answer Do you speak a language other than Cym[place] at home?: Yes Comments: [facility] Health Related Social Needs Health related social needs: material hardship(utilities) (Z59.12) and education (Z55.6) PFSH All Active Problems (Updated 08/07/24 @ 21:22 by Indra Bajwa MD) Graves disease (Acute) Sepsis (Acute) Cellulitis of face (Acute) Abscess of face (Acute) Periorbital cellulitis (Acute) Schizophrenia (Chronic) Medical History ADD (attention deficit disorder) Anxiety Schizophrenia Surgical History Fracture of lower leg Social History Smoking/Tobacco Use Status: Current every day Tobacco Type: cigarettes Smoking packs per day: 1 Smoking cigarettes per day: 20.0 Years smoked: 15 Smoking pack- years: 15.00 Tobacco: How many years used: 15 Smoking risk assessment performed?: Yes Alcohol Intake: never Drug use: Current Sobriety Substance use type: marijuana, crack/cocaine and methamphetamine Housing: other Do you feel safe at home: Yes Do you feel safe in your relationship?: Yes
[2024-08-08] MEDS: Pantoprazole 40 MG TABCR PO (16:05)
[2024-08-08 19:20] VITALS: BP 134/88; PULSE 70; RESP 20; TEMP 37.4; O2SAT 97
[2024-08-08] MEDS: Normal Saline Flush 10 ML SYR IVP (20:36)
[2024-08-08 21:55] LABS: C Diff PCR Negative (Negative); EPI 027-NAP1-B1 PRESUMPTIVE NEGATIVE
[2024-08-09] MEDS: Ibuprofen 600 MG TAB PO (04:32)
[2024-08-09 07:22] VITALS: BP 128/81; PULSE 66; RESP 18; TEMP 36.6; O2SAT 96
[2024-08-09] MEDS: methIMAzole 5 MG TAB 10 MG PO (08:00)
[2024-08-09] MEDS: Pantoprazole 40 MG TABCR PO (08:00)
[2024-08-09] MEDS: risperiDONE 0.5 MG TAB PO (08:00)
[2024-08-09] MEDS: Propranolol 20 MG TAB PO (08:00)
[2024-08-09] MEDS: Venlafaxine 75 MG TAB PO (08:00)
[2024-08-09] MEDS: Gabapentin 100 MG CAP PO (08:00)
--- NOTE | 2024-08-09 10:11 | W.PM.PROGNOT ---
Date of Service Date of service: 08/09/24 Time of Service: 10:11 Assessment and Plan Assessment and plan (1) Periorbital cellulitis: Status: Acute Assessment and plan: s/p I&D in the ER, continue daptomycin while cultures blood cultures pending wound culture ordered. continue dressing changes and wound packing (2) Schizophrenia: Status: Chronic Assessment and plan: -Cont w/ Risperidone 0.5mg daily (3) Graves disease: Status: Acute Assessment and plan: -Cont w/ Methimazole 10mg bid discussed with DR Barksdale Objective Last Vital Signs Temp 36.6 C 08/09/24 07:22 Pulse 66 08/09/24 07:22 Resp 18 08/09/24 07:22 BP 128/81 08/09/24 07:22 Pulse Ox 96 08/09/24 07:22 Laboratory Results - last 24 hr 08/08/24 20:55 Stl C.difficile Tox PCR Negative
[2024-08-09 10:43] LABS: Abs Immature Grans 0.02 10^3/uL (0.0-0.06); Absolute Basophil Count 0.04 10^3/uL (0.0-0.2); Absolute Eosinophil Count 0.28 10^3/uL (0.0-0.7); Absolute Lymphocyte Count 2.97 10^3/uL (1.2-3.4); Absolute Monocyte Count 0.58 10^3/uL (0.1-0.8); Absolute Neutrophil Count 4.71 10^3/uL (1.2-6.7); Basophils % 0.5 %; Eosinophils % 3.3 %; HCT 42.7 % (40.0-50.0); HGB 14.5 g/dL (13.5-17.5); Immature Grans % 0.2 %; Lymphocytes % 34.5 %; MCH 29.1 pg (27.0-33.0); MCV 86 fL (80-95); MPV 10.2 fL (8.0-11.0); Monocytes % 6.7 %; Neutrophils % 54.8 %; Platelet Count 243 10^3/uL (130-400); RBC 4.99 10^6/uL (4.36-5.78); RDW 12.7 % (11.8-14.1); RDW-SD 39.4 fL
[2024-08-09 11:05] LABS: Anion Gap 4.7 mmol/L (3-11); BUN 10 mg/dL (7-18); CO2 32.3 mmol/L (21.0-32.0); Calcium 9.6 mg/dL (8.5-10.1); Chloride 101 mmol/L (98-107); Estimated GFR 101.28 (mL/min/1.73m2); Glucose 112 mg/dL (74-106); Potassium 4.2 mmol/L (3.5-5.1); Sodium 138 mmol/L (136-145)
--- NOTE | 2024-08-09 12:27 | CMDISCH_ITS ---
Date of service: 08/09/24 Time of Service: 12:27 LACE Index Scoring Tool Questions: Length of Stay (in days): 2 Was the patient admitted via the E.D.?: Yes E.D. Visits: 2 Answers: Total Score: 7 Risk of Readmission: Low Risk Care Management Discharge Plan Reason for Hospitalization: Perobital Cellulitis Discharge Plan: Mirza will return to [facility]. He will follow up with the facility provider and continue per his plan of care. CM will help coordinate discharge with [facility], DOC who will transport him back to the facility. Patient/Family Education Needs: Review of discharge instructions, activity, limitation, and plan of care. Discuss Ask Me Three. [facility] Health Related Social Needs: Health related social needs material hardship(utilitie s) (Z59.12), education (Z55.6)
--- NOTE | 2024-08-09 12:42 | W.PM.DS.N ---
Date of service: 08/09/24 Time of Service: 12:42 DS: Diagnosis Discharge Diagnosis (1) Periorbital cellulitis: Status: Acute (2) Schizophrenia: Status: Chronic (3) Graves disease: Status: Acute Discharge Plan Disposition [facility] Condition: Improving Discharge Details Reason For Visit: Perorbital Cellulitis Admit Date/Time: 08/07/24 21:23 Admit Provider: Indra Bajwa Attending Provider: Indra Bajwa Primary Care Provider: Idania Ricks Hospital Course Hospital Course: This 34 y/o male patient leaving at a correctional facility with a past medical history of graves disease, hyperthyroidism, schizophreniapresnted to the ED on 08/07/24 for evaluation of progressive L eye swelling with abscess formation which has been on-going since 08/05/24 linked to cutting himself while shaving his eyebrow; received IM ceftriaxone and Augmentin prior to presentation. The patient was febrile and WBC at 1300; site was drained for 5 cm3 of purulent drainage, probed, deloculated, irrigated, and packed with 0.25-inch wick.The patient was admitted to the medical surgical floor by the hospitalist with blood and wound cultures pending. Antibiotic treatment with vancomycin caused a rash,transition to clindamycin failed d/t diarrhea. IV Daptomycin initiated. Wound cultures grew MRSA, blood cultures are negative.Transition made to Bactrim DS orally to be continue outpatient. C-diff negative w/o further episodes of diarrhea. At the time of discharged the patient was afebrile for a least 24 hours and remained hemodynamically stable. Dressing change to be completed daily at the correctional facility with packing removal, sterile saline rinse, repacking with 0.25-inch wick ( sent with patient at discharge), and cover with dry 2X2 sterile gauze. This is subject to reevaluation by healthcare provider at the correctional facility. Once discharged from the correctional facility, the patient will have to see his PCP or present to the ED for re-evaluation of dressing need. Discussed with Dr. Barksdale Home Meds and New Rx's Prescriptions: New sulfamethoxazole-trimethoprim 800-160 mg Tablet 1 tab PO Q12H Qty: 10 0RF Continued ibuprofen 600 MG tablet 600 mg PO Q8H PRNQty: 15 0RF gabapentin 100 mg capsule 100 mg PO DAILY Qty: 7 0RF methimazole 10 mg tablet 10 mg PO BID Patient Comments: TAKE 1 TABLET BY MOUTH TWICE DAILY acetaminophen 325 mg tablet,chewable 650 mg PO ONCE propranolol 20 mg tablet 20 mg PO BID Patient Comments: TAKE 1 TABLET BY MOUTH TWICE DAILY venlafaxine 75 mg tablet 75 mg PO BID risperidone 2 mg tablet 0.5 mg PO DAILY Patient Comments: TAKE 1 TABLET BY MOUTH TWICE DAILY FOR MOOD Discontinued ceftriaxone 1 gram recon soln 1 g IM DAILY amoxicillin-pot clavulanate 875-125 mg tablet 1 tab PO BID Discharge Instructions Referrals: Idania Ricks [Primary Care Provider] - (Follow-up within 7 days of discharge, please) Activity:: Activity as Tolerated Equipment/Supplies:: No Equipment Needed Diet:: As Tolerated Discharge Orders Discharge Orders: Discharge Order (Routine); Ordered 08/09/24 Ordered By: Zoila Odell DS: Summary Time Spent with Patient providing and/or coordinating discharge services: Greater than 30 minutes Status at Discharge Functional status at discharge: independent ambulation Overall status at discharge: patient is progressing back to baseline Mental Status: mental status grossly normal Speech and Movement: speech and movement normal Mood: congruent mood Affect: normal affect Quality:SDOH Health Related Social Needs: Health related social needs material hardship(utilities) (Z59.12), education (Z55.6) Exam Narrative Exam Narrative: 34-year-old male patient appearing stated age, in no acute distress, improving periorbital edema, no drainage to previously incised left eyebrow abscess site- wick in place; no focal neurological deficit, moves all 4 extremities, S1-S2, no murmur, positive radial and pedal pulses, abdomen is nondistended, soft nontender, bowel sounds are present, no bladder distention Psych Mental Status: mental status grossly normal Speech and Movement: speech and movement normal Mood: congruent mood Affect: normal affect DS: Data Vitals/I&O Vitals and I&O: Vital Signs Temperature 36.6 C 08/09/24 07:22 Temperature Source Temporal Artery Scan 08/09/24 07:22 Pulse 66 08/09/24 07:22 Respiratory Rate 18 08/09/24 07:22 Respiratory Effort Normal 08/07/24 23:50 Respiratory Depth Normal 08/07/24 23:50 Respiratory Pattern Normal 08/07/24 23:50 Blood Pressure 128/81 08/09/24 07:22 Blood Pressure Mean 96 08/09/24 07:22 Blood Pressure Position Left Lateral 08/07/24 17:13 Pulse Oximetry 96 08/09/24 07:22 Oxygen Delivery Method Room Air 08/09/24 07:22 Oxygen Flow Rate 0 08/09/24 07:22 Pain Level 0 08/09/24 07:22 Intake & Output 08/08/24 08/09/24 08/09/24 23:59 11:59 23:59 Intake Total 455 / 455 643 / 643 Balance 455 / 455 643 / 643 Intake: IV 55 / 55 50 / 50 Oral 400 / 400 593 / 593 Other: Comment Patient voids in the toilet. Data Completed and Pending Labs on day of discharge: Labs from last 24 hours 08/09/24 08/08/24 08/08/24 10:35 22:36 20:55 WBC 8.60 RBC 4.99 Hgb 14.5 Hct 42.7 MCV 86 MCH 29.1 MCHC 34.0 RDW 12.7 Plt Count 243 MPV 10.2 Immature Gran % 0.2 Neutrophils % 54.8 Lymphocytes % 34.5 Monocytes % 6.7 Eosinophils % 3.3 Basophils % 0.5 Nucleated RBC % 0.0 Absolute Neutrophils 4.71 Absolute Lymphocytes 2.97 Absolute Monocytes 0.58 Absolute Eosinophils 0.28 Absolute Basophils 0.04 Sodium 138 Potassium 4.2 Chloride 101 Carbon Dioxide 32.3 H Anion Gap 4.7 BUN 10 Creatinine 1.0 Est GFR (CKD-EPI 2020) 101.28 Glucose 112 H Calcium 9.6 Stool Campylobacter PCR Pending Stl C.difficile Tox PCR Negative Stool Salmonella PCR Pending Stool Shigella PCR Pending Shiga Toxin (PCR) Pending Preliminary micro results at discharge 08/08/24 11:00 Face - Not Specified Wound Culture - Preliminary Staph aureus, MRSA 08/07/24 16:17 Blood Blood Culture - Preliminary NO GROWTH 24 HOURS 08/07/24 15:53 Blood Blood Culture - Preliminary NO GROWTH 24 HOURS PFSH All Active Problems (Updated 08/07/24 @ 21:22 by Indra Bajwa MD) Graves disease (Acute) Sepsis (Acute) Cellulitis of face (Acute) Abscess of face (Acute) Periorbital cellulitis (Acute) Schizophrenia (Chronic) Medical History ADD (attention deficit disorder) Anxiety Schizophrenia Surgical History Fracture of lower leg Social History Smoking/Tobacco Use Status: Current every day Tobacco Type: cigarettes Smoking packs per day: 1 Smoking cigarettes per day: 20.0 Years smoked: 15 Smoking pack-years: 15.00 Tobacco: How many years used: 15 Smoking risk assessment performed?: Yes Alcohol Intake: never Drug use: Current Sobriety Substance use type: marijuana, crack/cocaine and methamphetamine Housing: other Do you feel safe at home: Yes Do you feel safe in your relationship?: Yes Time Spent with Patient Time Spent with Patient: 70-84 minutes4 Time was spent: preparing to see the patient(eg.review tests), obtaining and/or reviewing separately otained hiistory, ordering medications,tests, procedures, referring, communicating with other health career development engineer, indepentently interpreting results, counseling the patient and care coordination
[2024-08-09] MEDS: Sulfameth/Trimeth DS TAB 1 TAB PO (13:40)
== END 2024-08-09 13:57 | DRG 603 ==
LOC: ER 21:32 → MS 23:07
PROVIDERS: Family Medicine; Admitting Provider Student in an Organized Health Care Education/Training Program; Emergency Provider Physician Assistant; PCP Nurse Practitioner Family; Responsible Provider Nurse Practitioner Acute Care; Visit Provider Student in an Organized Health Care Education/Training Program
DX: L03.213 Periorbital cellulitis (principal); L02.01 Cutaneous abscess of face; B95.62 Methicillin resistant Staphylococcus aureus infection as the cause of diseases classified elsewhere; E05.00 Thyrotoxicosis with diffuse goiter without thyrotoxic crisis or storm; F20.9 Schizophrenia, unspecified; F41.9 Anxiety disorder, unspecified; F90.9 Attention-deficit hyperactivity disorder, unspecified type; F17.210 Nicotine dependence, cigarettes, uncomplicated; R19.7 Diarrhea, unspecified; Z79.899 Other long term (current) drug therapy
CPT/HCPCS: 00123; 36415; 80048; 80053; 85652; 87040; 87077; 87505; 99291; 70487; 81003; 83605; 84439; 84443; 85025; 86140; 87070; 87186; 87205; 99223; 99232; 99239; J0131; J0737; J0878; J1200; J2004; J3370; J3490